=== PATIENT | male | born 1955 | race Caucasian/White ===

== ENCOUNTER 2021-07-01 13:05 | Emergency (ER) | payer OTHER, SELFPAY ==
[2021-07-01 13:14] VITALS: BP 143/68; PULSE 70; RESP 18; TEMP 37; O2SAT 98
--- NOTE | 2021-07-01 13:23 | ED.URI ---
HPI - URI/Sore Throat General Chief Complaint: Upper Respiratory Infection Stated Complaint: Cough,Shortness of Breath Time Seen by Provider: 07/01/21 13:23 Source: patient Mode of arrival: ambulatory Limitations: no limitations History of Present Illness HPI Narrative: 65-year-old male presents with complaint of cough, chest congestion, wheezing, difficulty breathing for 2 days. Symptoms started after he cut grass and mulch in his backyard. Patient took Zyrtec with no relief of symptoms. reports that they both had Covid in March and since then report more breathing issues. Denies fever chills. No body aches. All systems reviewed and negative except as noted above. Related Data Home Medications Medication Instructions Recorded Confirmed cyclobenzaprine 10 mg tablet 10 mg PO TID 04/29/19 07/01/21 aspirin 81 mg tablet,delayed 81 mg PO DAILY 05/12/19 07/01/21 release Allergies Allergy/AdvReac Type Severity Reaction Status Date / Time No Known Allergies Allergy Verified 07/01/21 13:08 Review of Systems Review of Systems: CONSTITUTIONAL: Denies fever, chills, or sweats. EYES: Denies visual changes, redness, or discharge. ENT: Reports rhinorrhea, congestion. Denies sore throat, or otalgia. CARDIOVASCULAR: Denies chest pain, palpitations, or edema. RESPIRATORY: Reports cough, dyspnea, wheezing. GASTROINTESTINAL: Denies abdominal pain, nausea, vomiting, or diarrhea. GENITOURINARY: Denies dysuria or hematuria. SKIN: Denies rash or itching. MUSCULOSKELETAL: Denies back pain, joint pain, or myalgia. NEUROLOGIC: Denies headache, numbness, or weakness. PSYCHIATRIC: Denies anxiety or depression. All other systems reviewed are negative, except as documented in HPI. [facility] Family History Family History Mother Family history of heart disease in male family member before age 55 Patient's mother is Family history of diabetes mellitus in first degree relative Sibling Family history of heart disease in male family member before age 55 Father Acute myocardial infarction Patient's father is Family history of heart disease in male family member before age 55 Other Cerebrovascular accident Diabetes mellitus Family history of coronary artery disease Social History Social History Smoking end date: 03/23/06 Alcohol intake: never Comments At time of signature, agree with nursing past medical, surgical, social and family history. There is no relevant family history pertinent to the presenting complaint. Exam Narrative: GENERAL: This is a well-nourished, well-developed patient, in no apparent distress. HEAD: normocephalic, atraumatic. EYES: PERRL. Sclera clear/white. Vision is grossly intact. EARS: External ears normal, auditory canals clear and without drainage, TMs normal without perforation. Hearing grossly intact. NOSE: External nose normal with clear nasal drainage. THROAT: Mucous membranes moist, posterior pharynx clear. NECK: Neck supple, non-tender without lymphadenopathy, masses or thyromegaly. CARDIOVASCULAR: Regular rate and rhythm without murmurs, gallops, or rubs. RESPIRATORY: Patient hunched over with some mild labored breathing. He has coarse lung sounds throughout all lung hurst with mild wheezing on expiration to upper lung hurst. SKIN: warm, Dry, intact with no suspicious lesions or rash, good texture and turgor. NEURO: awake, alert, and oriented to person, place and time. There were no obvious focal neurologic abnormalities. EXTREMITIES: Normal range of motion all extremities. Course Course Level of Care: Express Care Visit Reevaluation(s) Reevaluation #1: Patient reports feeling better after albuterol nebulizer. States he can take a deep breath and getting a full cough. Able to cough up more phlegm. Wheezing has resolved. Date: 07/01/21 Time: 14:16
[2021-07-01] MEDS: methylPREDNISolone SOD SUCC 125 MG VIAL IM (13:37)
[2021-07-01] MEDS: ALBUTEROL SULFATE NEB 2.5 MG/3 ML INH INHALATION (13:38)
== END 2021-07-01 14:10 | disposition home or self-care (01) ==
PROVIDERS: Emergency Provider Nurse Practitioner Family; PCP Internal Medicine
DX: J30.2 Other seasonal allergic rhinitis (principal); J06.9 Acute upper respiratory infection, unspecified; E78.00 Pure hypercholesterolemia, unspecified; I10 Essential (primary) hypertension; Z86.16 Personal history of COVID-19; M13.0 Polyarthritis, unspecified; E03.9 Hypothyroidism, unspecified
CPT/HCPCS: 96372; 99213; G0463; J2930

== ENCOUNTER 2023-04-26 13:01 | Emergency (ER) | payer MEDICARE, SELFPAY ==
[2023-04-26] VITALS (8 sets, daily range): BP systolic 106–140; BP diastolic 53–72; PULSE 65–79; RESP 15–24; TEMP 36.6; O2SAT 95–98
--- NOTE | ~2023-04-26 | XR_ITS ---
EXAMINATION: XR chest 1V portable INDICATION: Shortness of breath TECHNIQUE: Portable AP chest at 1332 hours COMPARISON: 06/18/2012 FINDINGS: The lungs are free of acute opacities. No pleural effusion or pneumothorax. The cardiomedia stinal silhouette is normal. IMPRESSION: 1. No acute cardiopulmonary abnormality. Reviewed, dictated and finalized at location A. AGE SUPERVISOR
--- NOTE | ~2023-04-26 | XR_ITS ---
EXAM: XR abdomen/kub 1V DATE: 04/26/2023 16:30 HISTORY: assess for IVC filter . COMPARISON: None available. FINDINGS: IVC filter projecting over the right lateral aspect of L3. Contrast excretion from the kid neys. Normal bowel gas pattern. No definite organomegaly. Hernia mesh anchors over the mid abdomen. P artially visualized left hip arthroplasty hardware. Degenerative disc disease in the lumbar spine. IMPRESSION: Positive identification of an IVC filter. Reviewed, dictated and finalized at location K. COUNSELOR
--- NOTE | ~2023-04-26 | CT_ITS ---
EXAMINATION: CTA chest PE protocol DATE: 04/26/2023 16:02 INDICATION: PE TECHNIQUE: Computed tomography angiography (CTA) of the chest was performed with 100 mL Omnipaque-350 intravenous contrast timed to evaluate the pulmonary arteries. Coronal maximum intensity projection 3D-reconstructions were created by the technologist. The dose-length product (DLP) was 1022.98 mGy-cm . Automated exposure control and iterative reconstruction technique were employed. COMPARISON: X-ray chest, same date. FINDINGS: Lung parenchyma and airways: Dependent atelectasis. Airways clear. Pleura: Unremarkable. Thoracic inlet, axillae and chest wall: Unremarkable. Thoracic aorta: Normal. Mediastinum: Normal. Heart and pericardium: Cardiomegaly. RV/LV ratio 1.1. Coronary artery calcifications: Mild. Upper abdomen: No significant finding. Bones: No acute osseous finding. Pulmonary arteries: Study quality: Adequate. Saddle embolus bridging across the bifurcation of the le ft and right main pulmonary arteries. Acute emboli in the right and left main pulmonary arteries and segmental branches of all lobes. IMPRESSION: Central and segmental acute emboli involving all lobes, large clot burden, elevated RV/LV ratio, mac cating right heart strain. Results reported telephonically to Dr. Lorenzo by Dr. Cook at 4:15 PM on 04/26/2023. Reviewed, dictated and finalized at location K. YER MACHINE IMPRESSION: Central and segmental acute emboli involving all lobes, large clot burden, elev ated RV/LV ratio, indicating right heart strain. Results reported telephonically to Dr. Lorenzo by Dr. Cook at 4:15 PM on 024.
--- NOTE | 2023-04-26 13:13 | ECG_ITS ---
Measurements Intervals [place] Rate: 72 P: 16 [place]: 182 QRS: -32 QRSD: 104 T: 25 QT: 374 QTc: 410 Interpretive Statements SINUS RHYTHM WITH OCCASIONAL VENTRICULAR PREMATURE COMPLEXES LEFT AXIS DEVIATION [QRS AXIS < -30] LOW QRS VOLTAGE IN PRECORDIAL LEADS [QRS DEFLECTION < 1.0 mV IN CHEST LEADS] ABNORMAL ECG NO PREVIOUS ECG AVAILABLE FOR COMPARISON Electronically Signed On 04-27-2023 7:28:45 CLINICAL SCIENTIST by Mathieu Rowley M.D.
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
[2023-04-26 13:48] LABS: Basophils Percent Auto 0.6 % (0.2-1.2); Eosinophils Absolute Auto 0.1 K/mm3 (0-0.3); Eosinophils Percent Auto 1.4 % (0-4.4); Hematocrit 41.8 % (42.0-52.0); Immature Granulocyte Absolute 0.02 K/mm3 (0.00-0.031); Immature Granulocyte Percent A 0.3 % (0-0.5); Lymphocytes Percent Auto 11.4 % (18.3-44.2); Mean Corpuscular HGB Conc 33.5 g/dl (32-36); Mean Corpuscular Hemoglobin 31.3 pg (26-34); Mean Corpuscular Volume 93.5 fl (80-100); Mean Platelet Volume 9.6 fl (7.4-10.4); Monocytes Absolute Auto 0.7 K/mm3 (0.1-0.6); Monocytes Percent Auto 10.5 % (2.6-8.5); Neutrophils Absolute Auto 5.3 K/mm3 (1.3-6.7); Neutrophils Percent Auto 75.8 % (45.5-73.1); Platelet Count Result 181 k/mm3 (150-375); Red Blood Count 4.47 M/mm3 (4.6-6.20); Red Cell Distribution Width 12.9 % (11.5-14.5)
[2023-04-26 13:57] LABS: INR 1.1; Prothrombin Time 14.5 Seconds (11.1-14.7)
[2023-04-26 13:58] LABS: Partial Thromboplastin Time 29.2 SECONDS (22.3-36.8)
[2023-04-26 14:06] LABS: Alanine Aminotransferase 50 U/L (6-50); Albumin Level 3.9 g/dL (3.5-5.1); Alkaline Phosphatase 86 U/L (38-126); Anion Gap 10 mmol/L (8-16); Aspartate Amino Transferase 38 U/L (17-59); Bilirubin,Total 0.5 mg/dL (0.2-1.3); Blood Urea Nitrogen 17 mg/dL (9-20); Carbon Dioxide 22 mmol/L (22-30); Chloride 105 mmol/L (98-107); Estimated CRCL calculation 90 ml/min; Estimated Glomerular Filt Rate > 60; Glucose 131 mg/dL (65-110); Potassium 3.8 mmol/L (3.4-5.0); Sodium 137 mmol/L (137-145)
[2023-04-26 14:16] LABS: NT Pro B Type Natriuretic Pept 58 pg/mL (19.9-100); Troponin I 0.027 ng/mL (0.000-0.034)
[2023-04-26 14:19] LABS: D Dimer > 20.00 ug/mL (<0.48)
[2023-04-26 14:35] LABS: Appearance Urine Clear (Clear); Bacteria Urine None Seen /hpf; Bilirubin Urine Negative (Negative); Blood Urine Trace (Negative); Color Urine Yellow (Yellow); Glucose Urine UA Negative (Negative); Ketones Urine Trace mg/dL (Negative); Leukocyte Esterase Ur Negative LEU/UL (Negative); Nitrate Urine Negative (Negative); Non Pathogenic Casts 0-2; Protein Urine Trace mg/dL (Negative); RBC Urine 0-2 /hpf (0-2); Specific Grav Ur 1.023 (1.001-1.035); Squamous Epithelial Cell Urine None seen /hpf (Few); WBC Urine 0-5 /hpf; pH Urine 5.5 (5.0-9.0)
[2023-04-26 14:39] LABS: Add Urine Microscopic? YES
[2023-04-26 15:24] LABS: Influenza A QL RT-PCR Negative (Negative); Influenza B QL RT-PCR Negative (Negative); RSV RNA, RT-PCR Negative (Negative); SARS-CoV-2 RNA PCR Negative (Negative)
--- NOTE | 2023-04-26 16:21 | ECG_ITS ---
Measurements Intervals [place] Rate: 68 P: 84 [place]: 193 QRS: -35 QRSD: 95 T: 34 QT: 388 QTc: 415 Interpretive Statements SINUS RHYTHM MARKED LEFT AXIS DEVIATION [QRS AXIS < -30] LOW QRS VOLTAGE IN PRECORDIAL LEADS [QRS DEFLECTION < 1.0 mV IN CHEST LEADS] ABNORMAL ECG COMPARED TO ECG 04/26/2023 13:17:03 PVCS ARE NOT PRESENT Electronically Signed On 04-27-2023 7:36:14 FINANCIAL CONSULTANT by Mathieu Rowley M.D.
[2023-04-26] MEDS: HEPARIN SODIUM 5,000 UNITS/ML VIAL 8500 UNITS IV PUSH (16:42)
[2023-04-26] MEDS: HEPARIN SOD/D5W 100 UNITS/ML 25,000 UNITS/250 ML BAG 15 UNITS IV CONT (16:45)
[2023-04-26 17:14] LABS: Troponin I 0.048 ng/mL (0.000-0.034)
--- NOTE | 2023-04-26 18:04 | PC.NURSE ---
Spoke with Aga at [facility] transfer center and gave update about pt. Aga stated they would call back when they had a bed available
[2023-04-26 20:57] LABS: Troponin I 0.043 ng/mL (0.000-0.034)
[2023-04-26 22:45] LABS: Basophils Percent Auto 0.5 % (0.2-1.2); Eosinophils Absolute Auto 0.1 K/mm3 (0-0.3); Eosinophils Percent Auto 1.8 % (0-4.4); Hematocrit 39.9 % (42.0-52.0); Hemoglobin 13.2 g/dL (14.0-18.0); Immature Granulocyte Absolute 0.01 K/mm3 (0.00-0.031); Immature Granulocyte Percent A 0.2 % (0-0.5); Lymphocytes Absolute Auto 1.36 K/mm3 (0.9-3.2); Lymphocytes Percent Auto 22.3 % (18.3-44.2); Mean Corpuscular HGB Conc 33.1 g/dl (32-36); Mean Corpuscular Hemoglobin 31.1 pg (26-34); Mean Corpuscular Volume 94.1 fl (80-100); Mean Platelet Volume 9.5 fl (7.4-10.4); Monocytes Absolute Auto 0.9 K/mm3 (0.1-0.6); Monocytes Percent Auto 15.2 % (2.6-8.5); Neutrophils Absolute Auto 3.7 K/mm3 (1.3-6.7); Platelet Count Result 168 k/mm3 (150-375); Red Blood Count 4.24 M/mm3 (4.6-6.20); White Blood Count 6.1 K/mm3 (4.5-10.0)
[2023-04-26 23:00] LABS: INR 1.1; Prothrombin Time 14.7 Seconds (11.1-14.7)
[2023-04-26 23:03] LABS: Partial Thromboplastin Time 102.8 SECONDS (22.3-36.8)
== END 2023-04-26 23:35 | disposition short-term general hospital (02) ==
PROVIDERS: Emergency Provider Student in an Organized Health Care Education/Training Program; PCP Nurse Practitioner
DX: I26.92 Saddle embolus of pulmonary artery without acute cor pulmonale (principal); I10 Essential (primary) hypertension; E03.9 Hypothyroidism, unspecified; E78.5 Hyperlipidemia, unspecified; Z20.822 Contact with and (suspected) exposure to COVID-19
CPT/HCPCS: 36415; 71045; 71275; 74018; 80053; 81001; 83880; 84484; 85025; 85380; 85610; 85730; 87637; 93005; 96365; 96366; 99285; J1644; Q9967

== ENCOUNTER 2024-11-25 13:02 | Inpatient (IN) | payer MEDICARE, SELFPAY ==
[2024-11-25] VITALS (13 sets, daily range): BP systolic 102–131; BP diastolic 48–68; PULSE 54–67; RESP 11–20; TEMP 36.3–36.4; O2SAT 93–99; BMI 41.2
--- NOTE | ~2024-11-25 | US_ITS ---
EXAMINATION: US venous doppler UE RT DATE: 12/01/2024 14:12 INDICATION: Right upper extremity edema TECHNIQUE: Barros scale images with and without compression and Doppler images of the right upper extremity veins were obtained. COMPARISON: None. FINDINGS: The right internal jugular vein, subclavian vein, axillary vein, brachial veins, basilic vein, cephalic vein, radial vein, and ulnar vein are patent. IMPRESSION: 1. Patent right upper extremity veins. No evidence of deep venous thrombosis. Reviewed, dictated and finalized at location O.
--- NOTE | ~2024-11-25 | CT_ITS ---
EXAMINATION: CTA chest abdomen pelvis DATE: 11/25/2024 13:50 CDT INDICATION: Abdominal pain and hypotension TECHNIQUE: Computed tomographic angiography (CTA) of the chest, abdomen, and pelvis was performed without and with 100 mL Omnipaque-350 intravenous contrast. The dose-length product was 2267.28 mGy-cm. Maximum intensity projection 3D- reconstructions of the aorta and other arteries were constructed by the technologist on a separate workstation. COMPARISON: CT dated 04/26/2023. FINDINGS: CHEST CTA: There is dependent atelectasis. No focal consolidation to suggest pneumonia. Heart size normal. No evidence for aortic aneurysm or dissection. There is an IVC filter present. No thoracic lymphadenopathy. No central pulmonary embolism. ABDOMEN AND PELVIS CTA: Small low-density lesion right hepatic lobe near the dome, likely benign. Fatty infiltration of the liver. There are calcified granulomas of the spleen. The pancreas, adrenal glands and left kidney are unremarkable. There are right renal cysts, largest measuring 6 cm. Gallbladder is contracted. There is stenosis at the origin of the SMA, celiac axis. Renal arteries are patent. No evidence for abdominal aortic aneurysm or dissection. No free air or free fluid. There are changes of previous abdominal wall hernia repair. There is a left inguinal hernia containing fat. No free air or free fluid. Nonobstructive bowel gas pattern. No lymphadenopathy. There is a left total hip arthroplasty. There is moderate multilevel thoracic and lumbar spondylosis. IMPRESSION: 1. No acute abnormality of the chest, abdomen and pelvis. Reviewed, dictated and finalized at location O.
--- NOTE | ~2024-11-25 | MR_ITS ---
EXAMINATION: MR MRCP wo/w con/w 3D wo ind DATE: 11/30/2024 16:03 INDICATION: Pancreatitis. Hyperbilirubinemia. TECHNIQUE: Magnetic resonance imaging (MRI) of the abdomen was performed without and with 20 mL Multihance intravenous contrast. Sequences included coronal T2- weighted SS-FSE, coronal T2-weighted FS SS-FSE, coronal T2-weighted FS FIESTA, axial T2-weighted FS FIESTA, axial T2-weighted FIESTA, sagittal T2-weighted SS- FSE, axial T1-weighted dual-echo FSPGR, axial T2-weighted SS-FSE, axial T1- weighted LAVA, axial T2-weighted STIR FSE. Thick-slab T2-weighted FRFSE-XL images were obtained for magnetic resonance cholangiopancreatography (MRCP). Rotating maximum intensity projection 3-D reconstructions of the volumetric data were created by the technologist. Postcontrast sequences included a time course of axial T1-weighted LAVA. COMPARISON: CT dated 11/25/2024 FINDINGS: ABDOMEN MRI: Heart size is normal. No pericardial or pleural effusion. Trace bilateral posterior layering pleural effusions. There are multiple small T2 hyperintense nonenhancing hepatic cysts the largest measuring 1.1 cm. There is an abnormal morphology of the gallbladder which has a bilobed appearance with region of focally thickened gallbladder wall narrowing the lumen of the mid gallbladder with fluid filling the fundus and proximal aspect of the gallbladder. Spleen and bilateral adrenal glands are normal. There are bilateral renal cysts the largest on the left measuring 6.5 cm. There is peripancreatic edema and non masslike enhancement most prominent around the uncinate process suspicious for acute interstitial pancreatitis. There are small nonloculated appearing acute peripancreatic fluid collections in the anterior to the head of the pancreas. There is additional small amount of perihepatic and perisplenic ascites which tracks caudally along the left and right paracolic gutters. Visualized bowels are unremarkable with no obstruction. No pathologically enlarged abdominal or upper pelvic lymphadenopathy. Moderate to severe lumbar and lower thoracic spondylosis. ABDOMEN MRCP: No intrahepatic biliary ductal dilation. Common bile duct is dilated to 7 mm and tapers distally with no evident obstructing stone or mass. Main pancreatic duct is normal in caliber. IMPRESSION: 1. Acute interstitial pancreatitis with multiple small nonloculated acute peripancreatic fluid collections extending to the fat anterior to the head of the pancreas. 2. Abnormal groundglass configuration of the gallbladder with wall thickening at the central aspect of the gallbladder which appears narrowed suggests either scarring related chronic cholecystitis or potentially gallbladder carcinoma. Recommend surgical consultation. 2. Mild dilation the common bile duct to 7 mm but which tapers distally with no evident obstructing stone or mass. Reviewed, dictated and finalized at location A. IMPRESSION: 1. Acute interstitial pancreatitis with multiple small nonloculated acute perip ancreatic fluid collections extending to the fat anterior to the head of the pa ncreas. 2. Abnormal groundglass configuration of the gallbladder with wall thickening a t the central aspect of the gallbladder which appears narrowed suggests either scarring related chronic cholecystitis or potentially gallbladder carcinoma. Re commend surgical consultation. 2. Mild dilation the common bile duct to 7 mm but which tapers distally with no evident obstructing stone or mass.
--- NOTE | ~2024-11-25 | US_ITS ---
EXAMINATION: US abdomen limited DATE: 11/27/2024 08:46 INDICATION: Elevated liver enzymes TECHNIQUE: Multiple grayscale and Doppler ultrasound images of the abdomen were obtained. COMPARISON: None FINDINGS: Study is limited by patient body habitus. The pancreas is not clearly visualized. Liver has normal echogenicity and contour, with a smooth surface. No liver lesion identified. No intrahepatic biliary duct dilation suspected. Portal venous flow was seen in the hepatopetal, normal direction and has normal Doppler waveform. The gallbladder is normal in appearance. There is no cholelithiasis. The common bile duct measures 4 mm, which is normal. Sonographic Cano sign was reported as negative by the metal spray operator.Visualized portion of the proximal inferior vena cava is normal. IMPRESSION: 1. Unremarkable right upper quadrant ultrasound although evaluation is limited by patient body habitus Reviewed, dictated and finalized at location A.
--- NOTE | ~2024-11-25 | XR_ITS ---
XR chest 1V portable 11/25/2024 13:21 Indication: Abdomen pain. Procedure: AP portable chest Comparison: 04/26/2023 Findings: Borderline heart size. Mild chronic pulmonary vascular congestion. No significant effusion. No pneumothorax. No acute osseous abnormality. Impression: 1: Mild chronic pulmonary vascular congestion. Reviewed, dictated and finalized at location O. Impression: 1: Mild chronic pulmonary vascular congestion.
--- NOTE | 2024-11-25 13:05 | ECG_ITS ---
Test Date: 2024-11-25 13:30:33 Measurements Intervals [place] Rate: 67 P: -23 OR: 169 QRS: -31 QRSD: 108 T: 17 QT: 432 QTc: 457 Interpretive Statements SINUS RHYTHM MARKED LEFT AXIS DEVIATION [QRS AXIS < -30] LOW QRS VOLTAGE IN PRECORDIAL LEADS [QRS DEFLECTION < 1.0 mV IN CHEST LEADS] POSSIBLE RIGHT VENTRICULAR CONDUCTION DELAY [RSR (QR) IN V1/V2] No previous ECG available for comparison Electronically Signed On 11-25-2024 13:32:30 CDT by Fredo Hussein M.D.
[2024-11-25 13:23] LABS: Estimated Glomerular Filt Rate 38
[2024-11-25] MEDS: fentaNYL CITRATE INJ (*CRX) 100 MCG/2 ML VIAL 50 MCG IV PUSH ×2 (13:25→14:27)
[2024-11-25] MEDS: SODIUM CHLORIDE 0.9% IV 1,000 ML 999 ML IV CONT (13:41)
[2024-11-25 14:06] LABS: Hematocrit 40.5 % (42.0-52.0); Hemoglobin 13.6 g/dL (14.0-18.0); Immature Granulocyte Percent A 0.2 % (0-0.5); Lymphocytes Absolute Auto 1.30 K/mm3 (0.9-3.2); Mean Corpuscular HGB Conc 33.6 g/dl (32-36); Mean Corpuscular Hemoglobin 31.3 pg (26-34); Mean Corpuscular Volume 93.1 fl (80-100); Nucleated Red Blood Cells Absolute Auto 0.000 K/mm3 (0.0-0.012); Nucleated Red Blood Cells Perc 0.0 % (0.0-0.2); Platelet Count Result 235 k/mm3 (150-375); Red Blood Count 4.35 M/mm3 (4.6-6.20); White Blood Count 8.0 K/mm3 (4.5-10.0)
[2024-11-25 14:20] LABS: INR 1.6; Prothrombin Time 19.0 Seconds (11.1-14.7)
[2024-11-25 14:21] LABS: Partial Thromboplastin Time 31.9 Seconds (22.3-36.8)
[2024-11-25 14:30] LABS: Alanine Aminotransferase 54 U/L (6-50); Albumin Level 4.1 g/dL (3.5-5.1); Alkaline Phosphatase 78 U/L (38-126); Anion Gap 11 mmol/L (4-12); Aspartate Amino Transferase 65 U/L (17-59); Bilirubin,Total 1.6 mg/dL (0.2-1.3); Blood Urea Nitrogen 29 mg/dL (9-20); Calcium 9.0 mg/dL (8.4-10.2); Carbon Dioxide 19 mmol/L (22-30); Chloride 104 mmol/L (98-107); Estimated CRCL calculation 60 ml/min; Estimated Glomerular Filt Rate 43; Glucose 140 mg/dL (65-110); Magnesium 2.0 mg/dL (1.6-2.3); Potassium 3.9 mmol/L (3.4-5.0); Sodium 134 mmol/L (137-145); Total Protein 7.6 g/dL (6.3-8.2)
[2024-11-25 14:40] LABS: NT Pro B Type Natriuretic Pept 21 pg/mL (19.9-100); Troponin I < 0.012 ng/mL (0.000-0.034)
[2024-11-25 14:46] LABS: Procalcitonin 0.1 ng/mL
[2024-11-25 14:46] LABS: Influenza A QL RT-PCR Negative (Negative); Influenza B QL RT-PCR Negative (Negative); RSV RNA, RT-PCR Negative (Negative); SARS-CoV-2 RNA PCR Negative (Negative)
[2024-11-25 14:57] LABS: Lipase 17071 U/L (23-300)
--- NOTE | 2024-11-25 15:15 | ED.GENADULT ---
HPI - General Adult General Chief complaint: Abdominal Pain Stated complaint: abd pain Time Seen by Provider: 11/25/24 13:04 History of Present Illness HPI narrative: Patient is a in the 69-year-old gentleman presents emergency department chief complaint of abdominal pain. 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 the patient has a Genesis filter patient reports he has been compliant with his Eliquis patient was given IV fluids by EMS prior to arrival Related Data Home Medications ?Medication ?Instructions ?Recorded ?Confirmed ?Last Taken ?Type apixaban 5 mg tablet (Eliquis) 5 mg PO BID 09/08/23 10/20/24 Unknown History tiotropium 2.5 mcg-olodaterol 2.5 2 puff inhalation DAILY 10/20/24 10/20/24 Unknown History mcg/actuation mist for inhalation (Stiolto Respimat) Allergies Allergy/AdvReac Type Severity Reaction Status Date / Time No Known Allergies Allergy Verified 11/25/24 13:37 Review of Systems Review of Systems: A 10 system review of systems was completed on the patient and is negative except for what is stated in the HPI. Nursing and ancillary documentation was reviewed. [facility] Surgical History Surgical History History of hip surgery Family History Family History Mother Family history of heart disease in male family member before age 55 Patient's mother is Family history of diabetes mellitus in first degree relative Sibling Family history of heart disease in male family member before age 55 Heart disease Father Acute myocardial infarction Patient's father is Family history of heart disease in male family member before age 55 Other Cerebrovascular accident Diabetes mellitus Family history of coronary artery disease Social History Social History Smoking status: Former smoker Second hand tobacco smoke exposure: No Smoking end date: 03/23/06 Alcohol intake: current Drinks per week: 4 Alcohol use details: occasionally, beer Substance use: never Substance use type: does not use Do You Feel Safe in your Home?: Yes Lack of Transportation: No Lack of Food: Never True Current Housing: I Have Housing Concerned About Future Housing: No Difficulty Paying Gas/Electric Bills: No Difficulty Paying for Meds: No Currently Unemployed: No Education: Bachelor's Degree Difficulty w/ Childcare or Family Care: No Living arrangements: with family Occupation/Education: retired Additional occupation/education comments: [employer] Gender identity (if verbalized by the patient): Female Exam Narrative: GENERAL: Diaphoretic-appearing, well-nourished, and in moderate acute pain distress. HEAD: Normocephalic, atraumatic. EYES: PERRLA and EOMI. ENT: Nares clear, no rhinorrhea or epistaxis. Mucous membranes moist. NECK: Supple. CHEST: Clear to auscultation. No respiratory distress. HEART: Regular rate and rhythm. No murmur heard. Normal peripheral pulses. ABDOMEN: Soft, diffuse mild tenderness, nondistended, normal active bowel sounds. EXTREMITIES: Normal range of motion. No edema. SKIN: Warm, dry, no rash. NEURO: No focal deficits. Alert and oriented x3. PSYCH: Normal mood and affect. Course Vital Signs Vital signs: Vital Signs Temperature 36.3 C L 11/25/24 13:00 Pulse Rate 65 11/25/24 13:00 Respiratory Rate 12 11/25/24 13:00 Blood Pressure 112/52 L 11/25/24 13:00 Pulse Oximetry 96 11/25/24 13:00 Oxygen Delivery Room Air 11/25/24 13:00 Temperature 36.3 C L 11/25/24 13:00 Pulse Rate 60 11/25/24 15:10 Respiratory Rate 20 11/25/24 15:10 Blood Pressure 118/63 11/25/24 15:10 Pulse Oximetry 99 11/25/24 15:10 Oxygen Delivery Room Air 11/25/24 13:00 Medical Decision Making MDM Narrative Medical decision making narrative: Differential diagnosis includes pulmonary embolism, dissection, aneurysm, pancreatitis, intra-abdominal infection, bowel perforation Laboratory studies were obtained on the patient showed a white count of 8.0 electrolytes showed a BUN of 29 creatinine 1.61 Bilirubin was 1.6 AST and ALT were slightly elevated at 65 and 54 troponin was negative lipase was 17,071 CTA chest abdomen pelvis showed no acute abnormality Patient's pain was controlled in the emergency department Vital Signs Vital Signs: Vital Signs Temperature 36.3 C L 11/25/24 13:00 Pulse Rate 65 11/25/24 13:00 Respiratory Rate 12 11/25/24 13:00 Blood Pressure 112/52 L 11/25/24 13:00 Pulse Oximetry 96 11/25/24 13:00 Oxygen Delivery Room Air 11/25/24 13:00 Temperature 36.3 C L 11/25/24 13:00 Pulse Rate 60 11/25/24 15:10 Respiratory Rate 20 11/25/24 15:10 Blood Pressure 118/63 11/25/24 15:10 Pulse Oximetry 99 11/25/24 15:10 Oxygen Delivery Room Air 11/25/24 13:00 Lab Data 11/25/24 13:57 11/25/24 13:57 Labs: Lab Results 11/25/24 11/25/24 11/25/24 Range/Units 13:21 13:57 13:58 WBC 8.0 (4.5-10.0) K/mm3 RBC 4.35 L (4.6-6.20) M/mm3 Hgb 13.6 L (14.0-18.0) g/dL Hct 40.5 L (42.0-52.0) % MCV 93.1 (80-100) fl MCH 31.3 (26-34) pg MCHC 33.6 (32-36) g/dl RDW 13.2 (11.5-14.5) % Plt Count 235 (150-375) k/mm3 MPV 10.0 (7.4-10.4) fl Immature Gran % (Auto) 0.2 (0-0.5) % Neut % (Auto) 74.4 H (45.5-73.1) % Lymph % (Auto) 16.2 L (18.3-44.2) % [place] % (Auto) 8.0 (2.6-8.5) % Eos % (Auto) 1.0 (0-4.4) % Baso % (Auto) 0.2 (0.2-1.2) % Lymph # (Auto) 1.30 (0.9-3.2) K/mm3 [place] # (Auto) 0.6 (0.1-0.6) K/mm3 Eos # (Auto) 0.1 (0-0.3) K/mm3 Baso # (Auto) 0.0 (0.0-0.1) K/mm3 Abs Immat Gran (auto) 0.02 (0.00-0.031) K/mm3 Absolute Neuts (auto) 6.0 (1.3-6.7) K/mm3 Absolute Nucleated RBC 0.000 (0.0-0.012) K/mm3 Nucleated RBC % 0.0 (0.0-0.2) % PT 19.0 H (11.1-14.7) Seconds INR 1.6 APTT 31.9 (22.3-36.8) Seconds Sodium 134 L (137-145) mmol/L Potassium 3.9 (3.4-5.0) mmol/L Chloride 104 (98-107) mmol/L Carbon Dioxide 19 L (22-30) mmol/L Anion Gap 11 (4-12) mmol/L BUN 29 H D (9-20) mg/dL Creatinine 1.80 H 1.61 H (0.8-1.5) mg/dL Estim Creat Clear Calc Not Reportable 60 Estimated GFR 38 L 43 L (59 - ) Glucose 140 H (65-110) mg/dL Lactic Acid 1.7 (0.7-2.0) mmol/L Calcium 9.0 (8.4-10.2) mg/dL Magnesium 2.0 (1.6-2.3) mg/dL Total Bilirubin 1.6 H (0.2-1.3) mg/dL AST 65 H (17-59) U/L ALT 54 H (6-50) U/L Alkaline Phosphatase 78 (38-126) U/L Troponin I < 0.012 (0.000-0.034) ng/mL NT-Pro-B Natriuret Pep 21 (19.9-100) pg/mL Total Protein 7.6 (6.3-8.2) g/dL Albumin 4.1 (3.5-5.1) g/dL Lipase 61662 H (23-300) U/L Procalcitonin 0.1 ng/mL Influenza A (RT-PCR) Negative (Negative) Influenza B (RT-PCR) Negative (Negative) RSV (RT-PCR) Negative (Negative) SARS-CoV-2 RNA (RT-PCR) Negative (Negative) Blood Type O Positive Antibody Screen Negative Discharge Plan Discharge Clinical Impression: Acute pancreatitis, Abdominal pain Patient Disposition: Still a Patient Condition: Stable Instructions: Antibiotic Form Patient Language: Congolese Prescriptions: No Action Eliquis 5 mg tablet 5 mg PO BID levothyroxine 125 mcg tablet 125 mcg PO DAILY Qty: 90 1RF pravastatin 40 mg tablet See Rx Instructions .ROUTE .COMPLEX Qty: 90 1RF Dose Instruction: TAKE ONE-HALF TABLET BY MOUTH DAILY Rx Instructions: TAKE ONE-HALF TABLET BY MOUTH DAILY Stiolto Respimat 2.5-2.5 mcg/actuation mist 2 puff inhalation DAILY hydrochlorothiazide 12.5 mg tablet 12.5 mg PO DAILY Qty: 90 1RF olmesartan 20 mg tablet 20 mg PO DAILY Qty: 90 3RF Follow-up/Referrals: Barry Stevens APRN [Primary Care Provider, Internal Medicine] Time of Disposition: 15:46
[2024-11-25] MEDS: HYDROmorphone HCL INJ (*CRX) 1 MG/ML SYR 0.5 MG IV PUSH (15:56)
[2024-11-25] MEDS: SODIUM CHLORIDE 0.9% IV 1,000 ML 125 ML IV CONT (16:00)
[2024-11-25 16:17] LABS: Glucose Urine UA Negative (Negative); Leukocyte Esterase Ur Negative LEU/UL (Negative); Nitrate Urine Negative (Negative); Specific Grav Ur 1.040 (1.001-1.035)
[2024-11-25 16:20] LABS: Add Urine Microscopic? NO; Appearance Urine Clear (Clear)
--- NOTE | 2024-11-25 16:27 | P.HP_ITS ---
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 The patient presents here from home via EMS on 11/25 for further evaluation of abdominal pain. He reports onset of severe abdominal pain starting around 11 a.m. He described the abdominal pain as ache -> sharp, epigastric, nonradiating, constant but severity varies, no aggravating factors, and pressure/sitting up can somewhat alleviate it. Pain is accompanied by nausea and vomiting. He denies fever, chills, or body aches. The abdominal pain had prompted him to call EMS. Upon their arrival the patient's systolic blood pressure was in the 80s. However after they transferred him to the ambulance his blood pressure had dropped to 52/25. Given his presenting symptoms and severe hypotension, EMS became concerned for a AAA rupture which prompted them to give him 1G of TXA and 1 mg of Epinephrine. He received 2L of fluids and arrived to the emergency department with a blood pressure of 112/52. He has had no additional hypotensive episode since arrival. He has a hx of pancreatitis, unknown etiology. Denies any recent alcohol use in the last 4 months. Initial VS at presentation: 97.4? F, HR 65, R 12, 112/52, and 96% on RA. ED workup showed: No leukocytosis, hemoglobin 13.6, INR 1.6, creatinine 1.8 and GFR 38 (1.1 and GFR 57 on 04/26/2023), glucose 140, total bilirubin 1.6, AST 65, ALT 54, lipase of 17,071, procalcitonin 0.1. UA showed a high specific gravity and trace ketones otherwise unremarkable. Viral PCR negative. CXR showed mild chronic pulmonary vascular congestion. CTA of the chest/abdomen/pelvis showed no acute abnormality. Review of Systems Review of Systems: All systems reviewed & are unremarkable except as noted in HPI and below PMFSH Past Medical History Medical History (Updated 11/25/24 @ 21:56 by Valerie Cisneros, TYPESETTER APPRENTICE) Pancreatitis Adult hypothyroidism Presence of IVC filter Saddle pulmonary embolus Polyarthritis of multiple sites Obesity Essential (primary) hypertension Mixed hyperlipidemia Surgical History Surgical History History of hip surgery Family History Family History Mother Family history of heart disease in male family member before age 55 Patient's mother is Family history of diabetes mellitus in first degree relative Sibling Family history of heart disease in male family member before age 55 Heart disease Father Acute myocardial infarction Patient's father is Family history of heart disease in male family member before age 55 Other Cerebrovascular accident Diabetes mellitus Family history of coronary artery disease Social History Social History Smoking status: Former smoker Second hand tobacco smoke exposure: No Smoking end date: 11/25/09 Alcohol intake: current Drinks per week: 4 Alcohol use details: occasionally, beer Substance use: never Substance use type: does not use Do You Feel Safe in your Home?: Yes Lack of Transportation: No Lack of Food: Never True Current Housing: I Have Housing Concerned About Future Housing: No Difficulty Paying Gas/Electric Bills: No Difficulty Paying for Meds: No Currently Unemployed: No Education: Bachelor's Degree Difficulty w/ Childcare or Family Care: No Living arrangements: with family Occupation/Education: retired Additional occupation/education comments: [employer] Gender identity (if verbalized by the patient): Female Spiritual care concerns: No Meds Home Medications and Allergies Home Medications ?Medication ?Instructions ?Recorded ?Confirmed ?Type apixaban 5 mg tablet (Eliquis) 5 mg PO BID 09/08/23 History levothyroxine 125 mcg tablet 125 mcg PO DAILY #90 tabs 09/08/23 11/25/24 Rx pravastatin 40 mg tablet See Rx Instructions .Route 0 09/08/23 11/25/24 Rx .COMPLEX #90 tabs hydrochlorothiazide 12.5 mg tablet 12.5 mg PO DAILY #9 0 tabs 05/19/24 11/25/24 Rx olmesartan 20 mg tablet 20 mg PO DAILY #90 tabs 07/0 10/1411/25/24 Rx tiotropium 2.5 mcg-olodaterol 2.5 2 puff inhalation DA SOLANGE 10/20/24 11/25/24 History mcg/actuation mist for inhalation (Stiolto Respimat) Allergies Allergy/AdvReac Type Severity Reaction Status Date / Time No Known Allergies Allergy Verified 11/25/24 13:37 Vital Signs Vital Signs - 24 hr 11/25/24 13:00 11/25/24 14:01 11/25/24 14:30 Temperature 97.4 F L Pulse Rate 65 58 L 54 L Respiratory Rate 12 11 L 11 L Blood Pressure 112/52 L 102/59 L 108/55 L Pulse Oximetry 96 99 96 Oxygen Delivery Room Air 11/25/24 15:10 11/25/24 16:07 Temperature 97.5 F L Pulse Rate 60 64 Respiratory Rate 20 16 Blood Pressure 118/63 131/68 Pulse Oximetry 99 99 Oxygen Delivery Exam Const: General: no acute distress Other: , male, uncomfortable. + active vomiting. HENMT: Face/Nose/Sinus: Normal nares present Mouth: Yes moist mucous membranes Eyes: General: appearance normal, both eyes and all related structures Sclera: sclerae normal Pupils: Equal, round and reactive pupils present EOM: EOMs intact bilaterally Resp: Effort & Inspection: normal respiratory effort Auscultation: clear to auscultation bilaterally Cardio: Rate: regular rate Rhythm: regular rhythm Other: S1-S2 present without murmur, rub, ectopy GI: Other: Abdomen rounded but soft. Tender in the epigastric region. Normoactive bowel sounds in all quadrants. Skin: General skin exam: normal color and no rashes or lesions noted Wounds: no wounds Neuro: Speech: normal speech Motor exam (neuro): 5/5 motor strength present throughout Sensory Exam: normal sensation Other: A&O x4 Extrem: General: normal to inspection Psych: Mental Status: mental status grossly normal Affect: normal affect Other: Good insight and judgment H&P: Results Labs Labs: Short CBC 11/25/24 Range/Units 13:57 WBC 8.0 (4.5-10.0) K/mm3 Hgb 13.6 L (14.0-18.0) g/dL Hct 40.5 L (42.0-52.0) % Plt Count 235 (150-375) k/mm3 [facility] 11/25/24 11/25/24 13:21 13:57 Sodium 134 L Potassium 3.9 Chloride 104 Carbon Dioxide 19 L BUN 29 H D Creatinine 1.80 H 1.61 H Glucose 140 H Calcium 9.0 Cardiac Enzymes 11/25/24 Range/Units 13:57 Troponin I < 0.012 (0.000-0.034) ng/mL Liver Function 11/25/24 Range/Units 13:57 Total Bilirubin 1.6 H (0.2-1.3) mg/dL AST 65 H (17-59) U/L ALT 54 H (6-50) U/L Alkaline Phosphatase 78 (38-126) U/L Albumin 4.1 (3.5-5.1) g/dL Urine 11/25/24 Range/Units 16:08 Urine Color Yellow (Yellow) Urine Appearance Clear (Clear) Urine pH 5.5 (5.0-9.0) Ur Specific [place] 1.040 H (1.001-1.035) Urine Protein Negative (Negative) mg/dL Urine Glucose (UA) Negative (Negative) mg/dL Assessment and Plan Assessment and plan (1) Acute pancreatitis: Qualifiers: Acute pancreatitis complication: no infection or necrosis Pancreatitis type: unspecified pancreatitis type Qualified Code(s): K85.90 - Acute pancreatitis without necrosis or infection, unspecified Code(s): K85.90 - Acute pancreatitis without necrosis or infection, unspecified Status: Acute Assessment and Plan: - acute, has history of pancreatitis - IVF: 2L bolus by EMS, 1L bolus in ED, now on 125 mL/hour - trend lipase, currently: 12234 - mild transaminitis noted. Total bilirubin 1.6, AST 65, ALT 54. trend LFTs. - CTA chest/abd/pelvis: - hold pravastatin - analgesics p.r.n.: Tylenol, [place], Dilaudid. Initially started on Dilaudid 0.5 mg q.4, increased 0.75 mg q.4 as the patient reported severe pain despite administration. Pain still not controlled this evening, increased to 1 mg. - NPO, advance to clear liquid diet tomorrow, and then advance patient's diet as tolerated. (2) Adult hypothyroidism: Code(s): E03.9 - Hypothyroidism, unspecified Status: Chronic Assessment and Plan: - previous lab work reviewed, TSH 2.7 to on 10/14/2024 - continue Synthroid (3) Essential (primary) hypertension: Code(s): I10 - Essential (primary) hypertension Status: Chronic Assessment and Plan: - chronic, currently 119/57 - hold home medications (olmesartan 20 mg daily, HCTZ 12.5 mg daily) given significant hypotension in the field. Resume when appropriate. Placed in IMU for close hemodynamic monitoring. Plan Diet: NPO GI Prophylaxis: PPI IV DVT Prophylaxis: Eliquis IV fluids: 3L bolus -> 125 mL/hour Lines/Tubes: Peripheral IV Code Status: Full code Quality VTE Prophylaxis VTE prophylaxis: pharmacologic ordered Hospitalist [facility] Advance Care Plan I have confirmed that the patient's Advanced Care Plan is present, code status is documented, or surrogate decision maker is listed in patient medical record.: Yes Medication Reconciliation I have utilized all available resources to obtain, update and review the patients current medications (includes all prescriptions, OTC, herbals, canna bis, and nutritional supplements).: Yes
--- NOTE | 2024-11-25 16:47 | ECG_ITS ---
Test Date: 2024-11-25 16:59:55 Measurements Intervals [place] Rate: 48 P: -25 [place]: 159 QRS: -28 QRSD: 105 T: 6 QT: 480 QTc: 431 Interpretive Statements SINUS BRADYCARDIA LOW QRS VOLTAGE IN PRECORDIAL LEADS [QRS DEFLECTION < 1.0 mV IN CHEST LEADS] POSSIBLE RIGHT VENTRICULAR CONDUCTION DELAY Compared to ECG 11/25/2024 13:30:33 NO SIGNIFICANT CHANGES Electronically Signed On 11-26-2024 10:44:35 CDT by Fredo Hussein M.D.
[2024-11-25] MEDS: ONDANSETRON INJ 4 MG/2 ML VIAL IV PUSH ×2 (16:50→22:15)
[2024-11-25] MEDS: HYDROmorphone HCL INJ (*CRX) 1 MG/ML SYR 0.75 MG IV PUSH (17:39)
[2024-11-25 17:48] LABS: Troponin I < 0.012 ng/mL (0.000-0.034)
--- NOTE | 2024-11-25 18:07 | ADMGEN ---
This patient, Dontae Tapia, was admitted to IMU Room 201-01. Patient/family oriented to hospital policies and general routines including ID bracelet, bed and alarms, visiting hours, pain management, procedures, bathroom and other care routines, personal items, smoking policy, room service/diet, and visiting hours. Information on how to activate the Rapid Response Team has been discussed. Patient/Family are encouraged to report perceived risks to care and to ask questions if they do not understand what they are told or what they should do.
[2024-11-25] MEDS: HYDROcodone/acetaminophen (*CRX) 5-325 MG TABLET 1 TAB PO (20:00)
[2024-11-25 20:21] LABS: Troponin I < 0.012 ng/mL (0.000-0.034)
[2024-11-25] MEDS: METOCLOPRAMIDE HCL 10 MG TABLET PO (20:45)
[2024-11-25] MEDS: FAMOTIDINE 20 MG/2 ML VIAL IV PUSH (21:49)
[2024-11-25] MEDS: APIXABAN 5 MG TABLET PO (22:14)
[2024-11-25] MEDS: HYDROmorphone HCL INJ (*CRX) 1 MG/ML SYR IV PUSH (22:14)
[2024-11-26] VITALS (19 sets, daily range): BP systolic 106–123; BP diastolic 42–59; PULSE 55–104; RESP 14–18; TEMP 36.5–37.4; O2SAT 96–100
[2024-11-26] MEDS: HYDROmorphone HCL INJ (*CRX) 1 MG/ML SYR IV PUSH ×3 (02:46→16:55)
[2024-11-26] MEDS: SODIUM CHLORIDE 0.9% IV 1,000 ML 125 ML IV CONT ×3 (03:36→16:53)
[2024-11-26 04:05] LABS: Hematocrit 43.2 % (42.0-52.0); Hemoglobin 14.3 g/dL (14.0-18.0); Immature Granulocyte Percent A 0.2 % (0-0.5); Lymphocytes Absolute Auto 0.64 K/mm3 (0.9-3.2); Mean Corpuscular HGB Conc 33.1 g/dl (32-36); Mean Corpuscular Hemoglobin 31.2 pg (26-34); Mean Corpuscular Volume 94.3 fl (80-100); Nucleated Red Blood Cells Absolute Auto 0.000 K/mm3 (0.0-0.012); Nucleated Red Blood Cells Perc 0.0 % (0.0-0.2); Platelet Count Result 237 k/mm3 (150-375); Red Blood Count 4.58 M/mm3 (4.6-6.20); White Blood Count 9.1 K/mm3 (4.5-10.0)
[2024-11-26 04:30] LABS: Alanine Aminotransferase 114 U/L (6-50); Albumin Level 4.0 g/dL (3.5-5.1); Alkaline Phosphatase 70 U/L (38-126); Anion Gap 12 mmol/L (4-12); Aspartate Amino Transferase 94 U/L (17-59); Bilirubin,Total 1.1 mg/dL (0.2-1.3); Blood Urea Nitrogen 23 mg/dL (9-20); Calcium 8.2 mg/dL (8.4-10.2); Carbon Dioxide 18 mmol/L (22-30); Chloride 105 mmol/L (98-107); Estimated CRCL calculation 76 ml/min; Estimated Glomerular Filt Rate > 60; Glucose 117 mg/dL (65-110); Potassium 4.0 mmol/L (3.4-5.0); Sodium 135 mmol/L (137-145); Total Protein 7.5 g/dL (6.3-8.2)
[2024-11-26 04:55] LABS: Lipase 3985 U/L (23-300)
[2024-11-26] MEDS: LEVOTHYROXINE SODIUM 125 MCG TABLET PO (06:32)
[2024-11-26] MEDS: UMECLIDINIUM/VILANTEROL 62.5-25 MCG ELLIPTA 1 PUFF INHALATION (07:30)
[2024-11-26] MEDS: APIXABAN 5 MG TABLET PO ×2 (08:52→21:04)
[2024-11-26] MEDS: PANTOPRAZOLE SODIUM IV 40 MG VIAL IV PUSH (08:54)
[2024-11-26] MEDS: FAMOTIDINE 20 MG/2 ML VIAL IV PUSH ×2 (08:54→21:04)
--- NOTE | 2024-11-26 15:20 | PM.IMPN ---
Progress Note: A&P Assessment and Plan (1) Acute pancreatitis: Qualifiers: Acute pancreatitis complication: no infection or necrosis Pancreatitis type: unspecified pancreatitis type Qualified Code(s): K85.90 - Acute pancreatitis without necrosis or infection, unspecified Code(s): K85.90 - Acute pancreatitis without necrosis or infection, unspecified Status: Acute Assessment and Plan: Hx of pancreatitis Lipase 74418 CT AP no acute changes however liver enzymes elevated, US liver ordered Patient noted pain hasimproved and started on Clear liquid diet PRN pain control with IV Dilaudid adn PO Hydrocodone monitor (2) Adult hypothyroidism: Code(s): E03.9 - Hypothyroidism, unspecified Status: Chronic Assessment and Plan: - previous lab work reviewed, TSH 2.7 to on 10/14/2024 - continue Synthroid (3) Essential (primary) hypertension: Code(s): I10 - Essential (primary) hypertension Status: Chronic Assessment and Plan: - chronic, currently 119/57 - hold home medications (olmesartan 20 mg daily, HCTZ 12.5 mg daily) given significant hypotension in the field. Resume when appropriate. Placed in IMU for close hemodynamic monitoring. Plan Elevater liver enzymes r/o biliary obstruction vs viral hepatitis AST 94/ALT 114 US liver adn Viral hepatitis panel ordered monitor Hx of PE conitnue Eliquis DVT Prophylaxis: Eliquis Code Status: Full code Subjective Date/time seen: 11/26/24 15:20 Interval history: Comfortable at bedside Review of Systems Review of Systems: All systems reviewed & are unremarkable except as noted in HPI and below Exam Const: General: no acute distress Other: , male, uncomfortable. + active vomiting. HENMT: Face/Nose/Sinus: Normal nares present Mouth: Yes moist mucous membranes Eyes: General: appearance normal, both eyes and all related structures Sclera: sclerae normal Pupils: Equal, round and reactive pupils present EOM: EOMs intact bilaterally Resp: Effort & Inspection: normal respiratory effort Auscultation: clear to auscultation bilaterally Cardio: Rate: regular rate Rhythm: regular rhythm Other: S1-S2 present without murmur, rub, ectopy GI: Other: Abdomen rounded but soft. Tender in the epigastric region. Normoactive bowel sounds in all quadrants. Skin: General skin exam: normal color and no rashes or lesions noted Wounds: no wounds Neuro: Cranial nerves: Yes Equal, round and reactive pupils present Speech: normal speech Motor exam (neuro): 5/5 motor strength present throughout Sensory Exam: normal sensation Other: A&O x4 Extrem: General: normal to inspection Psych: Mental Status: mental status grossly normal Affect: normal affect Other: Good insight and judgment Objective Data Vital Signs Vital Signs: Vital Signs - 24 hr 11/25/24 16:07 11/25/24 17:08 11/25/24 17:31 Temperature 97.5 F L 97.5 F L Pulse Rate 64 54 L 59 L Respiratory Rate 16 14 18 Blood Pressure 131/68 121/61 122/48 L Pulse Oximetry 99 97 93 Oxygen Delivery 11/25/24 18:00 11/25/24 19:56 11/25/24 19:57 Temperature Pulse Rate 58 L 58 L 54 L Respiratory Rate 18 Blood Pressure Pulse Oximetry 93 Oxygen Delivery Room Air 11/25/24 20:00 11/25/24 22:13 11/25/24 23:00 Temperature 97.5 F L Pulse Rate 67 57 L Respiratory Rate 18 Blood Pressure 119/57 L Pulse Oximetry 99 99 Oxygen Delivery Room Air 11/26/24 00:00 11/26/24 00:00 11/26/24 00:00 Temperature 97.7 F Pulse Rate 59 L 55 L 55 L Respiratory Rate 18 18 Blood Pressure 123/59 L Pulse Oximetry 99 98 Oxygen Delivery Room Air 11/26/24 02:34 11/26/24 03:59 11/26/24 04:00 Temperature Pulse Rate 64 65 65 Respiratory Rate 18 Blood Pressure Pulse Oximetry 99 Oxygen Delivery Room Air 11/26/24 04:00 11/26/24 06:00 11/26/24 07:30 Temperature 98 F Pulse Rate 62 65 73 Respiratory Rate 18 17 Blood Pressure 108/52 L Pulse Oximetry 97 Oxygen Delivery 11/26/24 07:34 11/26/24 07:35 11/26/24 08:00 Temperature 97.7 F Pulse Rate 75 70 Respiratory Rate 17 18 Blood Pressure 107/48 L Pulse Oximetry 100 100 Oxygen Delivery Room Air 11/26/24 08:00 11/26/24 10:00 11/26/24 12:00 Temperature 97.8 F Pulse Rate 72 74 75 Respiratory Rate 18 Blood Pressure 110/53 L Pulse Oximetry 97 Oxygen Delivery 11/26/24 12:00 11/26/24 14:00 Temperature Pulse Rate 74 72 Respiratory Rate Blood Pressure Pulse Oximetry Oxygen Delivery Intake/Output Intake/Output: Intake & Output 11/23/24 11/24/24 11/25/24 11/26/24 23:59 23:59 23:59 23:59 Intake Total 1000 2562.5 Output Total 1075 Balance 1000 1487.5 Meds/Results Medications: Active Medications Generic Name Dose Route Start Last Admin Trade Name Freq PRN Reason Stop Dose Admin Acetaminophen 650 mg 11/25/24 15:44 Acetaminophen 325 Mg Tablet PO Q4H PRN Mild Pain (1-3) or Fever Hydrocodone Bitart/Acetaminophen 1 tab 11/25/24 16:38 11/25/24 20:00 Hydrocodone/Acetaminophen (*Crx) 5-325 Mg Tablet PO 1 tab Q6H PRN Administration Pain Rated 4-6 Apixaban 5 mg 11/25/24 21:00 11/26/24 08:52 Apixaban 5 Mg Tablet PO 5 mg Q12HR OWEN Administration Famotidine 20 mg 11/25/24 21:00 11/26/24 08:54 Famotidine 20 Mg/2 Ml Vial IV PUSH 20 mg Q12HR OWEN Administration Hydromorphone HCl 1 mg 11/25/24 21:04 11/26/24 09:23 Hydromorphone Hcl Inj (*Crx) 1 Mg/Ml Syr IV PUSH 1 mg Q4H PRN Administration Pain Rated 7-10 Sodium Chloride 1,000 mls @ 125 mls/hr 11/25/24 15:45 11/26/24 08:54 Normal Saline Iv IV CONT 125 mls/hr .Q8H OWEN Administration Levothyroxine Sodium 125 mcg 11/26/24 06:30 11/26/24 06:32 Levothyroxine Sodium 125 Mcg Tablet PO 125 mcg DAILY@0630 OWEN Administration Ondansetron HCl 4 mg 11/25/24 16:38 11/25/24 22:15 Ondansetron Inj 4 Mg/2 Ml Vial IV PUSH 4 mg Q6H PRN Administration Nausea And Vomiting Pantoprazole Sodium 40 mg 11/26/24 09:00 11/26/24 08:54 Pantoprazole Sodium Iv 40 Mg Vial IV PUSH 40 mg QAM OWEN Administration Umeclidinium/Vilanterol 1 puff 11/26/24 09:00 11/26/24 07:30 Umeclidinium/Vilanterol 62.5-25 Mcg Ellipta INHALATION 1 puff DAILY OWEN Administration Radiology Results: ITS Impressions Chest X-Ray 11/25/24 13:38 Impression: 1: Mild chronic pulmonary vascular congestion. Chest/Abdomen/Pelvis CTA 11/25/24 13:50 IMPRESSION: 1. No acute abnormality of the chest, abdomen and pelvis. Labs Labs: Laboratory Results - last 24 hr 11/25/24 11/25/24 11/25/24 16:08 17:01 19:52 WBC RBC Hgb Hct MCV MCH MCHC RDW Plt Count MPV Immature Gran % (Auto) Neut % (Auto) Lymph % (Auto) [place] % (Auto) Eos % (Auto) Baso % (Auto) Lymph # (Auto) [place] # (Auto) Eos # (Auto) Baso # (Auto) Abs Immat Gran (auto) Absolute Neuts (auto) Absolute Nucleated RBC Nucleated RBC % Sodium Potassium Chloride Carbon Dioxide Anion Gap BUN Creatinine Estim Creat Clear Calc Estimated GFR Glucose Calcium Total Bilirubin AST ALT Alkaline Phosphatase Troponin I < 0.012 < 0.012 Total Protein Albumin Lipase Urine Color Yellow Urine Appearance Clear Urine pH 5.5 Ur Specific [place] 1.040 H Urine Protein Negative Urine Glucose (UA) Negative Urine Ketones Trace H Ur Blood (Man) Negative Urine Nitrate Negative Urine Bilirubin Negative Urine Urobilinogen 0.2 Leukocyte Esterase Rfl Negative Urine RBC 0-2 Urine WBC 0-5 Ur Squamous Epith Cells None seen Urine Bacteria None seen Urine Casts 3-5 11/26/24 03:44 WBC 9.1 RBC 4.58 L Hgb 14.3 Hct 43.2 MCV 94.3 MCH 31.2 MCHC 33.1 RDW 13.3 Plt Count 237 MPV 10.1 Immature Gran % (Auto) 0.2 Neut % (Auto) 87.9 H Lymph % (Auto) 7.0 L [place] % (Auto) 4.5 Eos % (Auto) 0.2 Baso % (Auto) 0.2 Lymph # (Auto) 0.64 L [place] # (Auto) 0.4 Eos # (Auto) 0.0 Baso # (Auto) 0.0 Abs Immat Gran (auto) 0.02 Absolute Neuts (auto) 8.0 H Absolute Nucleated RBC 0.000 Nucleated RBC % 0.0 Sodium 135 L Potassium 4.0 Chloride 105 Carbon Dioxide 18 L Anion Gap 12 BUN 23 H Creatinine 1.19 Estim Creat Clear Calc 76 Estimated GFR > 60 Glucose 117 H Calcium 8.2 L Total Bilirubin 1.1 AST 94 H ALT 114 H Alkaline Phosphatase 70 Troponin I Total Protein 7.5 Albumin 4.0 Lipase 3985 H Urine Color Urine Appearance Urine pH Ur Specific [place] Urine Protein Urine Glucose (UA) Urine Ketones Ur Blood (Man) Urine Nitrate Urine Bilirubin Urine Urobilinogen Leukocyte Esterase Rfl Urine RBC Urine WBC Ur Squamous Epith Cells Urine Bacteria Urine Casts Quality VTE Prophylaxis VTE prophylaxis: pharmacologic ordered
[2024-11-26] MEDS: HYDROcodone/acetaminophen (*CRX) 5-325 MG TABLET 1 TAB PO (21:04)
[2024-11-27] VITALS (10 sets, daily range): BP systolic 109–132; BP diastolic 39–59; PULSE 47–92; RESP 16–22; TEMP 36.8–38.1; O2SAT 92–99
[2024-11-27] MEDS: SODIUM CHLORIDE 0.9% IV 1,000 ML 125 ML IV CONT ×3 (00:38→17:53)
[2024-11-27] MEDS: HYDROmorphone HCL INJ (*CRX) 1 MG/ML SYR IV PUSH ×4 (01:45→23:43)
[2024-11-27] MEDS: ONDANSETRON INJ 4 MG/2 ML VIAL IV PUSH (01:45)
[2024-11-27 03:48] LABS: Hematocrit 38.6 % (42.0-52.0); Hemoglobin 12.8 g/dL (14.0-18.0); Immature Granulocyte Percent A 0.6 % (0-0.5); Lymphocytes Absolute Auto 0.73 K/mm3 (0.9-3.2); Mean Corpuscular HGB Conc 33.2 g/dl (32-36); Mean Corpuscular Hemoglobin 30.8 pg (26-34); Mean Corpuscular Volume 93.0 fl (80-100); Nucleated Red Blood Cells Absolute Auto 0.000 K/mm3 (0.0-0.012); Nucleated Red Blood Cells Perc 0.0 % (0.0-0.2); Platelet Count Result 209 k/mm3 (150-375); Red Blood Count 4.15 M/mm3 (4.6-6.20); White Blood Count 16.6 K/mm3 (4.5-10.0)
[2024-11-27 04:29] LABS: Alanine Aminotransferase 60 U/L (6-50); Albumin Level 3.2 g/dL (3.5-5.1); Alkaline Phosphatase 75 U/L (38-126); Anion Gap 6 mmol/L (4-12); Aspartate Amino Transferase 43 U/L (17-59); Bilirubin,Total 0.9 mg/dL (0.2-1.3); Blood Urea Nitrogen 17 mg/dL (9-20); Calcium 8.0 mg/dL (8.4-10.2); Carbon Dioxide 22 mmol/L (22-30); Chloride 106 mmol/L (98-107); Cholesterol 100 mg/dL (0-200); Estimated CRCL calculation 75 ml/min; Estimated Glomerular Filt Rate 59; Glucose 95 mg/dL (65-110); HDL Direct 39 mg/dL; Magnesium 1.9 mg/dL (1.6-2.3); Potassium 4.3 mmol/L (3.4-5.0); Sodium 134 mmol/L (137-145); Total Protein 6.3 g/dL (6.3-8.2); Triglycerides 42 mg/dL (<150)
[2024-11-27 04:55] LABS: Hepatitis B Surface Antigen Negative (Negative)
[2024-11-27 05:01] LABS: HAV RESULT Negative (Negative); Hepatitis B Core IgM Result Negative (Negative)
[2024-11-27] MEDS: LEVOTHYROXINE SODIUM 125 MCG TABLET PO (06:24)
[2024-11-27] MEDS: UMECLIDINIUM/VILANTEROL 62.5-25 MCG ELLIPTA 1 PUFF INHALATION (08:24)
[2024-11-27] MEDS: FAMOTIDINE 20 MG/2 ML VIAL IV PUSH ×2 (09:11→20:31)
[2024-11-27] MEDS: PANTOPRAZOLE SODIUM IV 40 MG VIAL IV PUSH (09:11)
[2024-11-27] MEDS: HYDROcodone/acetaminophen (*CRX) 5-325 MG TABLET 1 TAB PO (09:11)
[2024-11-27] MEDS: APIXABAN 5 MG TABLET PO ×2 (09:12→20:31)
--- NOTE | 2024-11-27 12:15 | PM.IMPN ---
Progress Note: A&P Assessment and Plan (1) Acute pancreatitis: Qualifiers: Acute pancreatitis complication: no infection or necrosis Pancreatitis type: unspecified pancreatitis type Qualified Code(s): K85.90 - Acute pancreatitis without necrosis or infection, unspecified Code(s): K85.90 - Acute pancreatitis without necrosis or infection, unspecified Status: Acute Assessment and Plan: Hx of pancreatitis Lipase [address]296 CT AP no acute changes however liver enzymes elevated, US liver ordered Not tolerating diet, NPo now PRN pain control with IV Dilaudid adn PO Hydrocodone monitor (2) Adult hypothyroidism: Code(s): E03.9 - Hypothyroidism, unspecified Status: Chronic Assessment and Plan: - previous lab work reviewed, TSH 2.7 to on 10/14/2024 - continue Synthroid (3) Essential (primary) hypertension: Code(s): I10 - Essential (primary) hypertension Status: Chronic Assessment and Plan: - chronic, currently 119/57 - hold home medications (olmesartan 20 mg daily, HCTZ 12.5 mg daily) given significant hypotension in the field. Resume when appropriate. Placed in IMU for close hemodynamic monitoring. Plan Elevated liver enzymes r/o biliary obstruction vs viral hepatitis AST 94/ALT 114, hepatitis viral panel negative US liver monitor Hx of PE continue Eliquis DVT Prophylaxis: Eliquis Code Status: Full code Subjective Date/time seen: 11/27/24 12:15 Interval history: Patient noted pain with fluid diet now back on NPO Review of Systems Review of Systems: All systems reviewed & are unremarkable except as noted in HPI and below Exam Const: General: no acute distress Other: , male, uncomfortable. + active vomiting. HENMT: Face/Nose/Sinus: Normal nares present Mouth: Yes moist mucous membranes Eyes: General: appearance normal, both eyes and all related structures Sclera: sclerae normal Pupils: Equal, round and reactive pupils present EOM: EOMs intact bilaterally Resp: Effort & Inspection: normal respiratory effort Auscultation: clear to auscultation bilaterally Cardio: Rate: regular rate Rhythm: regular rhythm Other: S1-S2 present without murmur, rub, ectopy GI: Other: Abdomen rounded but soft. Tender in the epigastric region. Normoactive bowel sounds in all quadrants. Skin: General skin exam: normal color and no rashes or lesions noted Wounds: no wounds Neuro: Cranial nerves: Yes Equal, round and reactive pupils present Speech: normal speech Motor exam (neuro): 5/5 motor strength present throughout Sensory Exam: normal sensation Other: A&O x4 Extrem: General: normal to inspection Psych: Mental Status: mental status grossly normal Affect: normal affect Other: Good insight and judgment Objective Data Vital Signs Vital Signs: Vital Signs - 24 hr 11/26/24 14:00 11/26/24 15:57 11/26/24 16:00 Temperature 98.5 F Pulse Rate 72 93 80 Respiratory Rate 16 Blood Pressure 106/42 L Pulse Oximetry 96 Oxygen Delivery 11/26/24 18:00 11/26/24 19:47 11/26/24 20:00 Temperature 99.3 F Pulse Rate 104 H 86 82 Respiratory Rate 14 Blood Pressure 114/47 L Pulse Oximetry 97 Oxygen Delivery 11/26/24 20:00 11/26/24 22:00 11/26/24 23:04 Temperature Pulse Rate 85 Respiratory Rate Blood Pressure Pulse Oximetry 98 Oxygen Delivery Room Air Room Air 11/27/24 00:00 11/27/24 00:00 11/27/24 00:00 Temperature 100.6 F H Pulse Rate 87 84 Respiratory Rate 17 Blood Pressure 122/57 L Pulse Oximetry 96 Oxygen Delivery Room Air 11/27/24 02:00 11/27/24 04:00 11/27/24 04:00 Temperature 99.5 F Pulse Rate 86 91 Respiratory Rate 16 Blood Pressure 109/39 L Pulse Oximetry 96 Oxygen Delivery Room Air 11/27/24 04:00 11/27/24 06:00 11/27/24 08:00 Temperature 99.4 F Pulse Rate 85 83 92 Respiratory Rate 22 H Blood Pressure 114/53 L Pulse Oximetry 92 Oxygen Delivery 11/27/24 08:00 11/27/24 08:00 11/27/24 08:25 Temperature Pulse Rate 81 81 86 Respiratory Rate 17 17 Blood Pressure Pulse Oximetry 92 Oxygen Delivery Room Air 11/27/24 10:00 Temperature Pulse Rate 82 Respiratory Rate Blood Pressure Pulse Oximetry Oxygen Delivery Intake/Output Intake/Output: Intake & Output 11/24/24 11/25/24 11/26/24 11/27/24 23:59 23:59 23:59 23:59 Intake Total 1000 3560.4 2208.8 Output Total 1075 650 Balance 1000 2485.4 1558.8 Meds/Results Medications: Active Medications Generic Name Dose Route Start Last Admin Trade Name Freq PRN Reason Stop Dose Admin Acetaminophen 650 mg 11/25/24 15:44 Acetaminophen 325 Mg Tablet PO Q4H PRN Mild Pain (1-3) or Fever Hydrocodone Bitart/Acetaminophen 1 tab 11/25/24 16:38 11/27/24 09:11 Hydrocodone/Acetaminophen (*Crx) 5-325 Mg Tablet PO 1 tab Q6H PRN Administration Pain Rated 4-6 Apixaban 5 mg 11/25/24 21:00 11/27/24 09:12 Apixaban 5 Mg Tablet PO 5 mg Q12HR OWEN Administration Famotidine 20 mg 11/25/24 21:00 11/27/24 09:11 Famotidine 20 Mg/2 Ml Vial IV PUSH 20 mg Q12HR OWEN Administration Hydromorphone HCl 1 mg 11/25/24 21:04 11/27/24 07:45 Hydromorphone Hcl Inj (*Crx) 1 Mg/Ml Syr IV PUSH 1 mg Q4H PRN Administration Pain Rated 7-10 Sodium Chloride 1,000 mls @ 125 mls/hr 11/25/24 15:45 11/27/24 09:15 Normal Saline Iv IV CONT 125 mls/hr .Q8H OWEN Administration Levothyroxine Sodium 125 mcg 11/26/24 06:30 11/27/24 06:24 Levothyroxine Sodium 125 Mcg Tablet PO 125 mcg DAILY@0630 OWEN Administration Ondansetron HCl 4 mg 11/25/24 16:38 11/27/24 01:45 Ondansetron Inj 4 Mg/2 Ml Vial IV PUSH 4 mg Q6H PRN Administration Nausea And Vomiting Pantoprazole Sodium 40 mg 11/26/24 09:00 11/27/24 09:11 Pantoprazole Sodium Iv 40 Mg Vial IV PUSH 40 mg QAM OWEN Administration Umeclidinium/Vilanterol 1 puff 11/26/24 09:00 11/27/24 08:24 Umeclidinium/Vilanterol 62.5-25 Mcg Ellipta INHALATION 1 puff DAILY OWEN Administration Radiology Results: ITS Impressions Chest X-Ray 11/25/24 13:38 Impression: 1: Mild chronic pulmonary vascular congestion. Chest/Abdomen/Pelvis CTA 11/25/24 13:50 IMPRESSION: 1. No acute abnormality of the chest, abdomen and pelvis. Labs Labs: Laboratory Results - last 24 hr 11/27/24 03:26 WBC 16.6 H RBC 4.15 L Hgb 12.8 L Hct 38.6 L MCV 93.0 MCH 30.8 MCHC 33.2 RDW 13.7 Plt Count 209 MPV 9.9 Immature Gran % (Auto) 0.6 H Neut % (Auto) 89.3 H Lymph % (Auto) 4.4 L [place] % (Auto) 5.3 Eos % (Auto) 0.1 Baso % (Auto) 0.3 Lymph # (Auto) 0.73 L [place] # (Auto) 0.9 H Eos # (Auto) 0.0 Baso # (Auto) 0.1 Abs Immat Gran (auto) 0.10 H Absolute Neuts (auto) 14.8 H Absolute Nucleated RBC 0.000 Nucleated RBC % 0.0 Sodium 134 L Potassium 4.3 Chloride 106 Carbon Dioxide 22 Anion Gap 6 BUN 17 Creatinine 1.22 Estim Creat Clear Calc 75 Estimated GFR 59 Glucose 95 Calcium 8.0 L Magnesium 1.9 Total Bilirubin 0.9 AST 43 ALT 60 H Alkaline Phosphatase 75 Total Protein 6.3 Albumin 3.2 L Triglycerides 42 Cholesterol 100 LDL Cholesterol Direct < 30 HDL Direct 39 Hepatitis A IgM Ab Negative Hep Bs Antigen Negative Hep B Core IgM Ab Negative Hepatitis C Ab Screen Negative Quality VTE Prophylaxis VTE prophylaxis: pharmacologic ordered
[2024-11-28] MEDS: SODIUM CHLORIDE 0.9% IV 1,000 ML 125 ML IV CONT ×3 (03:07→20:14)
[2024-11-28] MEDS: HYDROmorphone HCL INJ (*CRX) 1 MG/ML SYR IV PUSH (03:28)
[2024-11-28 05:43] LABS: Hematocrit 36.6 % (42.0-52.0); Hemoglobin 12.3 g/dL (14.0-18.0); Immature Granulocyte Percent A 0.9 % (0-0.5); Lymphocytes Absolute Auto 0.79 K/mm3 (0.9-3.2); Mean Corpuscular HGB Conc 33.6 g/dl (32-36); Mean Corpuscular Hemoglobin 31.6 pg (26-34); Mean Corpuscular Volume 94.1 fl (80-100); Nucleated Red Blood Cells Absolute Auto 0.000 K/mm3 (0.0-0.012); Nucleated Red Blood Cells Perc 0.0 % (0.0-0.2); Platelet Count Result 186 k/mm3 (150-375); Red Blood Count 3.89 M/mm3 (4.6-6.20); White Blood Count 16.0 K/mm3 (4.5-10.0)
[2024-11-28 06:00] VITALS: BP 112/60; PULSE 85; RESP 16; TEMP 36.6; O2SAT 94
[2024-11-28 06:01] LABS: Alanine Aminotransferase 39 U/L (6-50); Albumin Level 3.0 g/dL (3.5-5.1); Alkaline Phosphatase 75 U/L (38-126); Anion Gap 7 mmol/L (4-12); Aspartate Amino Transferase 44 U/L (17-59); Bilirubin,Total 1.1 mg/dL (0.2-1.3); Blood Urea Nitrogen 15 mg/dL (9-20); Calcium 8.0 mg/dL (8.4-10.2); Carbon Dioxide 20 mmol/L (22-30); Chloride 107 mmol/L (98-107); Estimated CRCL calculation 84 ml/min; Estimated Glomerular Filt Rate > 60; Glucose 101 mg/dL (65-110); Magnesium 1.9 mg/dL (1.6-2.3); Potassium 3.9 mmol/L (3.4-5.0); Sodium 134 mmol/L (137-145); Total Protein 6.1 g/dL (6.3-8.2)
[2024-11-28] MEDS: LEVOTHYROXINE SODIUM 125 MCG TABLET PO (06:14)
[2024-11-28 08:32] VITALS: O2SAT 91
[2024-11-28] MEDS: UMECLIDINIUM/VILANTEROL 62.5-25 MCG ELLIPTA 1 PUFF INHALATION (08:32)
[2024-11-28] MEDS: FAMOTIDINE 20 MG/2 ML VIAL IV PUSH ×2 (09:23→20:14)
[2024-11-28] MEDS: PANTOPRAZOLE SODIUM IV 40 MG VIAL IV PUSH (09:23)
[2024-11-28] MEDS: APIXABAN 5 MG TABLET PO ×2 (09:23→20:14)
[2024-11-28] MEDS: HYDROcodone/acetaminophen (*CRX) 5-325 MG TABLET 1 TAB PO ×3 (09:29→22:16)
--- NOTE | 2024-11-28 12:53 | PM.IMPN ---
Progress Note: A&P Assessment and Plan (1) Acute pancreatitis: Qualifiers: Acute pancreatitis complication: no infection or necrosis Pancreatitis type: unspecified pancreatitis type Qualified Code(s): K85.90 - Acute pancreatitis without necrosis or infection, unspecified Code(s): K85.90 - Acute pancreatitis without necrosis or infection, unspecified Status: Acute Assessment and Plan: Hx of pancreatitis Lipase [address]1794 CT AP no acute changes however liver enzymes elevated, US liver unremarkable on clear liquid diet PRN pain control with IV Dilaudid adn PO Hydrocodone monitor (2) Adult hypothyroidism: Code(s): E03.9 - Hypothyroidism, unspecified Status: Chronic Assessment and Plan: - previous lab work reviewed, TSH 2.7 to on 10/14/2024 - continue Synthroid (3) Essential (primary) hypertension: Code(s): I10 - Essential (primary) hypertension Status: Chronic Assessment and Plan: - chronic, currently 119/57 - hold home medications (olmesartan 20 mg daily, HCTZ 12.5 mg daily) given significant hypotension in the field. Resume when appropriate. Placed in IMU for close hemodynamic monitoring. Plan Elevated liver enzymes, resolved r/o biliary obstruction vs viral hepatitis AST 44/ALT 39, hepatitis viral panel negative US liver unremarkable monitor Hx of PE continue Eliquis DVT Prophylaxis: Eliquis Code Status: Full code Subjective Date/time seen: 11/28/24 12:53 Interval history: Patient noted pain with fluid diet Continue clear liquir diet, still having abd pain with food Review of Systems Review of Systems: All systems reviewed & are unremarkable except as noted in HPI and below Exam Const: General: no acute distress Other: , male, uncomfortable. + active vomiting. HENMT: Face/Nose/Sinus: Normal nares present Mouth: Yes moist mucous membranes Eyes: General: appearance normal, both eyes and all related structures Sclera: sclerae normal Pupils: Equal, round and reactive pupils present EOM: EOMs intact bilaterally Resp: Effort & Inspection: normal respiratory effort Auscultation: clear to auscultation bilaterally Cardio: Rate: regular rate Rhythm: regular rhythm Other: S1-S2 present without murmur, rub, ectopy GI: Other: Abdomen rounded but soft. Tender in the epigastric region. Normoactive bowel sounds in all quadrants. Skin: General skin exam: normal color and no rashes or lesions noted Wounds: no wounds Neuro: Cranial nerves: Yes Equal, round and reactive pupils present Speech: normal speech Motor exam (neuro): 5/5 motor strength present throughout Sensory Exam: normal sensation Other: A&O x4 Extrem: General: normal to inspection Psych: Mental Status: mental status grossly normal Affect: normal affect Other: Good insight and judgment Objective Data Vital Signs Vital Signs: Vital Signs - 24 hr 11/27/24 16:00 11/27/24 20:00 11/27/24 22:25 Temperature 98.8 F 98.4 F Pulse Rate 84 47 L Respiratory Rate 18 16 Blood Pressure 132/59 L 122/44 L Pulse Oximetry 99 94 Oxygen Delivery Room Air 11/28/24 06:00 11/28/24 08:32 11/28/24 09:30 Temperature 97.8 F Pulse Rate 85 Respiratory Rate 16 Blood Pressure 112/60 Pulse Oximetry 94 91 Oxygen Delivery Room Air Room Air Intake/Output Intake/Output: Intake & Output 11/25/24 11/26/24 11/27/24 11/28/24 23:59 23:59 23:59 23:59 Intake Total 1000 3560.4 3928.8 2520 Output Total 4564 893 7877 Balance 1000 2485.4 3128.8 1120 Meds/Results Medications: Active Medications Generic Name Dose Route Start Last Admin Trade Name Freq PRN Reason Stop Dose Admin Acetaminophen 650 mg 11/25/24 15:44 Acetaminophen 325 Mg Tablet PO Q4H PRN Mild Pain (1-3) or Fever Hydrocodone Bitart/Acetaminophen 1 tab 11/25/24 16:38 11/28/24 09:29 Hydrocodone/Acetaminophen (*Crx) 5-325 Mg Tablet PO 1 tab Q6H PRN Administration Pain Rated 4-6 Apixaban 5 mg 11/25/24 21:00 11/28/24 09:23 Apixaban 5 Mg Tablet PO 5 mg Q12HR OWEN Administration Famotidine 20 mg 11/25/24 21:00 11/28/24 09:23 Famotidine 20 Mg/2 Ml Vial IV PUSH 20 mg Q12HR OWEN Administration Hydromorphone HCl 1 mg 11/25/24 21:04 11/28/24 03:28 Hydromorphone Hcl Inj (*Crx) 1 Mg/Ml Syr IV PUSH 1 mg Q4H PRN Administration Pain Rated 7-10 Sodium Chloride 1,000 mls @ 125 mls/hr 11/25/24 15:45 11/28/24 11:23 Normal Saline Iv IV CONT 125 mls/hr .Q8H OWEN Administration Levothyroxine Sodium 125 mcg 11/26/24 06:30 11/28/24 06:14 Levothyroxine Sodium 125 Mcg Tablet PO 125 mcg DAILY@0630 OWEN Administration Ondansetron HCl 4 mg 11/25/24 16:38 11/27/24 01:45 Ondansetron Inj 4 Mg/2 Ml Vial IV PUSH 4 mg Q6H PRN Administration Nausea And Vomiting Pantoprazole Sodium 40 mg 11/26/24 09:00 11/28/24 09:23 Pantoprazole Sodium Iv 40 Mg Vial IV PUSH 40 mg QAM OWEN Administration Umeclidinium/Vilanterol 1 puff 11/26/24 09:00 11/28/24 08:32 Umeclidinium/Vilanterol 62.5-25 Mcg Ellipta INHALATION 1 puff DAILY OWEN Administration Radiology Results: ITS Impressions Chest X-Ray 11/25/24 13:38 Impression: 1: Mild chronic pulmonary vascular congestion. Chest/Abdomen/Pelvis CTA 11/25/24 13:50 IMPRESSION: 1. No acute abnormality of the chest, abdomen and pelvis. Abdomen Ultrasound 11/28/24 07:58 IMPRESSION: 1. Unremarkable right upper quadrant ultrasound although evaluation is limited by patient body habitus Labs Labs: Laboratory Results - last 24 hr 11/28/24 05:21 WBC 16.0 H RBC 3.89 L Hgb 12.3 L Hct 36.6 L MCV 94.1 MCH 31.6 MCHC 33.6 RDW 13.7 Plt Count 186 MPV 10.2 Immature Gran % (Auto) 0.9 H Neut % (Auto) 87.1 H Lymph % (Auto) 4.9 L [place] % (Auto) 6.7 Eos % (Auto) 0.2 Baso % (Auto) 0.2 Lymph # (Auto) 0.79 L [place] # (Auto) 1.1 H Eos # (Auto) 0.0 Baso # (Auto) 0.0 Abs Immat Gran (auto) 0.15 H Absolute Neuts (auto) 13.9 H Absolute Nucleated RBC 0.000 Nucleated RBC % 0.0 Sodium 134 L Potassium 3.9 Chloride 107 Carbon Dioxide 20 L Anion Gap 7 BUN 15 Creatinine 1.08 Estim Creat Clear Calc 84 Estimated GFR > 60 Glucose 101 Calcium 8.0 L Magnesium 1.9 Total Bilirubin 1.1 AST 44 ALT 39 Alkaline Phosphatase 75 Total Protein 6.1 L Albumin 3.0 L Quality VTE Prophylaxis VTE prophylaxis: pharmacologic ordered
[2024-11-28 14:00] VITALS: BP 134/61; PULSE 78; RESP 18; TEMP 36.8; O2SAT 97
[2024-11-28 22:00] VITALS: BP 142/70; PULSE 75; RESP 18; TEMP 36.3; O2SAT 99
[2024-11-29] MEDS: SODIUM CHLORIDE 0.9% IV 1,000 ML 125 ML IV CONT ×2 (05:01→14:30)
[2024-11-29] MEDS: HYDROcodone/acetaminophen (*CRX) 5-325 MG TABLET 1 TAB PO ×3 (05:02→17:44)
[2024-11-29 05:57] LABS: Hematocrit 37.2 % (42.0-52.0); Hemoglobin 12.5 g/dL (14.0-18.0); Immature Granulocyte Percent A 0.6 % (0-0.5); Lymphocytes Absolute Auto 0.62 K/mm3 (0.9-3.2); Mean Corpuscular HGB Conc 33.6 g/dl (32-36); Mean Corpuscular Hemoglobin 31.1 pg (26-34); Mean Corpuscular Volume 92.5 fl (80-100); Nucleated Red Blood Cells Absolute Auto 0.000 K/mm3 (0.0-0.012); Nucleated Red Blood Cells Perc 0.0 % (0.0-0.2); Platelet Count Result 205 k/mm3 (150-375); Red Blood Count 4.02 M/mm3 (4.6-6.20); White Blood Count 13.7 K/mm3 (4.5-10.0)
[2024-11-29 06:00] VITALS: BP 145/81; PULSE 76; RESP 18; TEMP 37.1; O2SAT 97
[2024-11-29] MEDS: LEVOTHYROXINE SODIUM 125 MCG TABLET PO (06:20)
[2024-11-29 06:22] LABS: Alanine Aminotransferase 42 U/L (6-50); Albumin Level 3.2 g/dL (3.5-5.1); Alkaline Phosphatase 99 U/L (38-126); Anion Gap 7 mmol/L (4-12); Aspartate Amino Transferase 51 U/L (17-59); Bilirubin,Total 2.4 mg/dL (0.2-1.3); Blood Urea Nitrogen 13 mg/dL (9-20); Calcium 8.2 mg/dL (8.4-10.2); Carbon Dioxide 19 mmol/L (22-30); Chloride 106 mmol/L (98-107); Estimated CRCL calculation 106 ml/min; Estimated Glomerular Filt Rate > 60; Glucose 101 mg/dL (65-110); Magnesium 1.9 mg/dL (1.6-2.3); Potassium 3.7 mmol/L (3.4-5.0); Sodium 132 mmol/L (137-145); Total Protein 6.4 g/dL (6.3-8.2)
[2024-11-29] MEDS: UMECLIDINIUM/VILANTEROL 62.5-25 MCG ELLIPTA 1 PUFF INHALATION (07:54)
[2024-11-29] MEDS: APIXABAN 5 MG TABLET PO ×2 (10:02→20:47)
[2024-11-29] MEDS: FAMOTIDINE 20 MG/2 ML VIAL IV PUSH ×2 (10:03→20:47)
[2024-11-29] MEDS: PANTOPRAZOLE SODIUM IV 40 MG VIAL IV PUSH (10:03)
[2024-11-29 14:00] VITALS: BP 130/64; PULSE 73; RESP 20; TEMP 36.3; O2SAT 98
--- NOTE | 2024-11-29 14:56 | P.PNIM_ITS ---
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 The patient presents here from home via EMS on 11/25 for further evaluation of abdominal pain. He reports onset of severe abdominal pain starting around 11 a.m. He described the abdominal pain as -> sharp, epigastric, nonradiating, constant but severity varies, no aggravating factors, and pressure/sitting up can somewhat alleviate it. Pain is accompanied by nausea and vomiting. He denies fever, chills, or body aches. The abdominal pain had prompted him to call EMS. Upon their arrival the patient's systolic blood pressure was in the 80s. However after they transferred him to the ambulance his blood pressure had dropped to 52/25. Given his presenting symptoms and severe hypotension, EMS became concerned for a AAA rupture which prompted them to give him 1G of TXA and 1 mg of Epinephrine. He received 2L of fluids and arrived to the emergency department with a blood pressure of 112/52. He has had no additional hypotensive episode since arrival. He has a hx of pancreatitis, unknown etiology. Denies any recent alcohol use in the last 4 months. Initial VS at presentation: 97.4? F, HR 65, R 12, 112/52, and 96% on RA. ED workup showed: No leukocytosis, hemoglobin 13.6, INR 1.6, creatinine 1.8 and GFR 38 (1.1 and GFR 57 on 04/26/2023), glucose 140, total bilirubin 1.6, AST 65, ALT 54, lipase of 17,071, procalcitonin 0.1. UA showed a high specific gravity and trace ketones otherwise unremarkable. Viral PCR negative. CXR showed mild chronic pulmonary vascular congestion. CTA of the chest/abdomen/pelvis showed no acute abnormality. Acute pancreatitis: Mildly improved pain. Continue normal saline. Continue pain regimen. Initially hypotensive EN route with EMS, now resolved. Clear liquid diet. Transaminitis: Present on admission, resolved. Feeling OUTSIDE SALES ACCOUNT MANAGER pravastatin Elevated bilirubin: Total bilirubin 2.4 on 11/29/2024. Hemoglobin is stable. On 11/28/2024 upper quadrant ultrasound unremarkable although evaluation is limited by the patient's body habitus. MRCP pending. Chronic hypertension: Hypotensive on arrival, resolved. Continue to hold OUTSIDE SALES ACCOUNT MANAGER hydrochlorothiazide and olmesartan. Continue monitoring. Hypothyroidism: Resume OUTSIDE SALES ACCOUNT MANAGER levothyroxine Patient wishes to be full code. Clear liquid diet. Famotidine 20 mg IV b.i.d. Continue OUTSIDE SALES ACCOUNT MANAGER Eliquis Subjective Date/time seen: 11/29/24 14:56 Interval history: No major acute overnight events. He thinks is abdominal pain is slightly better. Vomiting, had a bowel movement the day prior. Denies fever. Review of Systems Review of Systems: All systems reviewed & are unremarkable except as noted in HPI and below (Subjective) Exam Const: General: comfortable and no acute distress Other: A&O x3 HENMT: Mouth: Yes moist mucous membranes Eyes: Pupils: Equal, round and reactive pupils present Neck: Neck: supple Resp: Effort & Inspection: normal respiratory effort Auscultation: clear to auscultation bilaterally Cardio: Rate: regular rate Rhythm: regular rhythm GI: Other: Mild distension, bowel sounds active, soft, mild tenderness in the epigastric region, mildly positive Cano sign Neuro: Motor exam (neuro): 5/5 motor strength present throughout Extrem: General: no edema Objective Data Vital Signs Vital Signs: Vital Signs - 24 hr 11/28/24 20:00 11/28/24 22:00 11/29/24 06:00 Temperature 97.4 F L 98.7 F Pulse Rate 75 76 Respiratory Rate 18 18 Blood Pressure 142/70 H 145/81 H Pulse Oximetry 99 97 Oxygen Delivery Room Air Intake/Output Intake/Output: Intake & Output 11/26/24 11/27/24 11/28/24 11/29/24 23:59 23:59 23:59 23:59 Intake Total 3560.4 3928.8 4310 2360 Output Total 9817 060 7482 100 Balance 2485.4 3128.8 2410 2260 Meds/Results Medications: Active Medications Generic Name Dose Route Start Last Admin Trade Name Freq PRN Reason Stop Dose Admin Acetaminophen 650 mg 11/25/24 15:44 Acetaminophen 325 Mg Tablet PO Q4H PRN Mild Pain (1-3) or Fever Hydrocodone Bitart/Acetaminophen 1 tab 11/25/24 16:38 11/29/24 10:02 Hydrocodone/Acetaminophen (*Crx) 5-325 Mg Tablet PO 1 tab Q6H PRN Administration Pain Rated 4-6 Apixaban 5 mg 11/25/24 21:00 11/29/24 10:02 Apixaban 5 Mg Tablet PO 5 mg Q12HR OWEN Administration Famotidine 20 mg 11/25/24 21:00 11/29/24 10:03 Famotidine 20 Mg/2 Ml Vial IV PUSH 20 mg Q12HR OWEN Administration Hydromorphone HCl 0.5 mg 11/29/24 14:55 Hydromorphone Hcl Inj (*Crx) 1 Mg/Ml Syr IV PUSH Q4H PRN Pain Rated 7-10 Sodium Chloride 1,000 mls @ 125 mls/hr 11/25/24 15:45 11/29/24 14:30 Normal Saline Iv IV CONT 125 mls/hr .Q8H OWEN Administration Levothyroxine Sodium 125 mcg 11/26/24 06:30 11/29/24 06:20 Levothyroxine Sodium 125 Mcg Tablet PO 125 mcg DAILY@0630 OWEN Administration Ondansetron HCl 4 mg 11/25/24 16:38 11/27/24 01:45 Ondansetron Inj 4 Mg/2 Ml Vial IV PUSH 4 mg Q6H PRN Administration Nausea And Vomiting Umeclidinium/Vilanterol 1 puff 11/26/24 09:00 11/29/24 07:54 Umeclidinium/Vilanterol 62.5-25 Mcg Ellipta INHALATION 1 puff DAILY OWEN Administration Radiology Results: ITS Impressions Chest X-Ray 11/25/24 13:38 Impression: 1: Mild chronic pulmonary vascular congestion. Chest/Abdomen/Pelvis CTA 11/25/24 13:50 IMPRESSION: 1. No acute abnormality of the chest, abdomen and pelvis. Abdomen Ultrasound 11/28/24 07:58 IMPRESSION: 1. Unremarkable right upper quadrant ultrasound although evaluation is limited by patient body habitus Labs Labs: Laboratory Results - last 24 hr 11/29/24 05:36 WBC 13.7 H RBC 4.02 L Hgb 12.5 L Hct 37.2 L MCV 92.5 MCH 31.1 MCHC 33.6 RDW 13.3 Plt Count 205 MPV 10.4 Immature Gran % (Auto) 0.6 H Neut % (Auto) 86.5 H Lymph % (Auto) 4.5 L [place] % (Auto) 7.6 Eos % (Auto) 0.7 Baso % (Auto) 0.1 L Lymph # (Auto) 0.62 L [place] # (Auto) 1.0 H Eos # (Auto) 0.1 Baso # (Auto) 0.0 Abs Immat Gran (auto) 0.08 H Absolute Neuts (auto) 11.8 H Absolute Nucleated RBC 0.000 Nucleated RBC % 0.0 Sodium 132 L Potassium 3.7 Chloride 106 Carbon Dioxide 19 L Anion Gap 7 BUN 13 Creatinine 0.89 Estim Creat Clear Calc 106 Estimated GFR > 60 Glucose 101 Calcium 8.2 L Magnesium 1.9 Total Bilirubin 2.4 H AST 51 ALT 42 Alkaline Phosphatase 99 Total Protein 6.4 Albumin 3.2 L
[2024-11-29 20:11] VITALS: PULSE 74; RESP 20; O2SAT 90
[2024-11-29 20:39] VITALS: BP 130/61; PULSE 79; RESP 18; TEMP 37.1; O2SAT 97
[2024-11-30] VITALS (7 sets, daily range): BP systolic 109–141; BP diastolic 49–72; PULSE 62–74; RESP 16–20; TEMP 36.2–36.4; O2SAT 97–99
[2024-11-30] MEDS: HYDROcodone/acetaminophen (*CRX) 5-325 MG TABLET 1 TAB PO ×3 (00:22→20:59)
[2024-11-30] MEDS: SODIUM CHLORIDE 0.9% IV 1,000 ML 125 ML IV CONT ×2 (02:44→08:41)
[2024-11-30] MEDS: LEVOTHYROXINE SODIUM 125 MCG TABLET PO (06:04)
[2024-11-30] MEDS: UMECLIDINIUM/VILANTEROL 62.5-25 MCG ELLIPTA 1 PUFF INHALATION (08:05)
[2024-11-30] MEDS: APIXABAN 5 MG TABLET PO ×2 (08:40→20:59)
[2024-11-30] MEDS: FAMOTIDINE 20 MG/2 ML VIAL IV PUSH ×2 (08:40→20:59)
--- NOTE | 2024-11-30 16:08 | PM.IMPN ---
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 The patient presents here from home via EMS on 11/25 for further evaluation of abdominal pain. He reports onset of severe abdominal pain starting around 11 a.m. He described the abdominal pain as -> sharp, epigastric, nonradiating, constant but severity varies, no aggravating factors, and pressure/sitting up can somewhat alleviate it. Pain is accompanied by nausea and vomiting. He denies fever, chills, or body aches. The abdominal pain had prompted him to call EMS. Upon their arrival the patient's systolic blood pressure was in the 80s. However after they transferred him to the ambulance his blood pressure had dropped to 52/25. Given his presenting symptoms and severe hypotension, EMS became concerned for a AAA rupture which prompted them to give him 1G of TXA and 1 mg of Epinephrine. He received 2L of fluids and arrived to the emergency department with a blood pressure of 112/52. He has had no additional hypotensive episode since arrival. He has a hx of pancreatitis, unknown etiology. Denies any recent alcohol use in the last 4 months. Initial VS at presentation: 97.4? F, HR 65, R 12, 112/52, and 96% on RA. ED workup showed: No leukocytosis, hemoglobin 13.6, INR 1.6, creatinine 1.8 and GFR 38 (1.1 and GFR 57 on 04/26/2023), glucose 140, total bilirubin 1.6, AST 65, ALT 54, lipase of 17,071, procalcitonin 0.1. UA showed a high specific gravity and trace ketones otherwise unremarkable. Viral PCR negative. CXR showed mild chronic pulmonary vascular congestion. CTA of the chest/abdomen/pelvis showed no acute abnormality. Acute pancreatitis: Pain continues to improve. Clear liquid diet. Advance as tolerated. Discontinue fluids. Continue pain regimen. Initially hypotensive EN route with EMS, now resolved. Leukocytosis improving from 16.6-13.7. Transaminitis: Present on admission, resolved. Hepatitis screen negative. Holding MATERNAL CHILD NURSE pravastatin Elevated bilirubin: Total bilirubin 2.4 on 11/29/2024. Hemoglobin is stable. On 11/28/2024 upper quadrant ultrasound unremarkable although evaluation is limited by the patient's body habitus. MRCP pending. Chronic hypertension: Hypotensive on arrival, resolved. Continue to hold MATERNAL CHILD NURSE hydrochlorothiazide and olmesartan. Continue monitoring. Hypothyroidism: Resume MATERNAL CHILD NURSE levothyroxine Patient wishes to be full code. Clear liquid diet. Advance as tolerated. Famotidine 20 mg IV b.i.d, consider discontinuation if patient is eating regularly Continue MATERNAL CHILD NURSE Eliquis Subjective Date/time seen: 11/30/24 16:08 Interval history: No major acute overnight events. Reports his abdominal pain is greatly improved. Denies fever. MRI cannot be performed, nursing team attempting to retrieve records for his IVC filter. Review of Systems Review of Systems: All systems reviewed & are unremarkable except as noted in HPI and below (Subjective) Exam Const: General: comfortable and no acute distress Other: A&O x3 HENMT: Mouth: Yes moist mucous membranes Eyes: Pupils: Equal, round and reactive pupils present Neck: Neck: supple Resp: Effort & Inspection: normal respiratory effort Auscultation: clear to auscultation bilaterally Cardio: Rate: regular rate Rhythm: regular rhythm GI: Other: Nontender. Soft Neuro: Motor exam (neuro): 5/5 motor strength present throughout Extrem: General: no edema Objective Data Vital Signs Vital Signs: Vital Signs - 24 hr 11/29/24 20:00 11/29/24 20:11 11/29/24 20:39 Temperature 98.7 F Pulse Rate 74 79 Respiratory Rate 20 18 Blood Pressure 130/61 Pulse Oximetry 90 97 Oxygen Delivery Room Air Room Air Fraction of Inspired Oxygen 21 11/30/24 05:22 11/30/24 08:07 11/30/24 08:08 Temperature 97.6 F Pulse Rate 74 73 Respiratory Rate 20 17 Blood Pressure 141/72 H Pulse Oximetry 98 97 Oxygen Delivery Room Air Fraction of Inspired Oxygen 21 Intake/Output Intake/Output: Intake & Output 11/27/24 11/28/24 11/29/24 11/30/24 23:59 23:59 23:59 23:59 Intake Total 3928.8 4310 3780 993.8 Output Total 800 1900 100 0 Balance 3128.8 2410 3680 993.8 Meds/Results Medications: Active Medications Generic Name Dose Route Start Last Admin Trade Name Freq PRN Reason Stop Dose Admin Acetaminophen 650 mg 11/25/24 15:44 Acetaminophen 325 Mg Tablet PO Q4H PRN Mild Pain (1-3) or Fever Hydrocodone Bitart/Acetaminophen 1 tab 11/29/24 23:14 11/30/24 08:40 Hydrocodone/Acetaminophen (*Crx) 5-325 Mg Tablet PO 1 tab Q4H PRN Administration Pain Rated 4-6 Apixaban 5 mg 11/25/24 21:00 11/30/24 08:40 Apixaban 5 Mg Tablet PO 5 mg Q12HR OWEN Administration Famotidine 20 mg 11/25/24 21:00 11/30/24 08:40 Famotidine 20 Mg/2 Ml Vial IV PUSH 20 mg Q12HR OWEN Administration Hydromorphone HCl 0.5 mg 11/29/24 14:55 Hydromorphone Hcl Inj (*Crx) 1 Mg/Ml Syr IV PUSH Q4H PRN Pain Rated 7-10 Sodium Chloride 1,000 mls @ 125 mls/hr 11/25/24 15:45 11/30/24 08:41 Normal Saline Iv IV CONT 125 mls/hr .Q8H OWEN Administration Levothyroxine Sodium 125 mcg 11/26/24 06:30 11/30/24 06:04 Levothyroxine Sodium 125 Mcg Tablet PO 125 mcg DAILY@0630 OWEN Administration Ondansetron HCl 4 mg 11/25/24 16:38 11/27/24 01:45 Ondansetron Inj 4 Mg/2 Ml Vial IV PUSH 4 mg Q6H PRN Administration Nausea And Vomiting Umeclidinium/Vilanterol 1 puff 11/26/24 09:00 11/30/24 08:05 Umeclidinium/Vilanterol 62.5-25 Mcg Ellipta INHALATION 1 puff DAILY OWEN Administration Radiology Results: ITS Impressions Chest X-Ray 11/25/24 13:38 Impression: 1: Mild chronic pulmonary vascular congestion. Chest/Abdomen/Pelvis CTA 11/25/24 13:50 IMPRESSION: 1. No acute abnormality of the chest, abdomen and pelvis. Abdomen Ultrasound 11/28/24 07:58 IMPRESSION: 1. Unremarkable right upper quadrant ultrasound although evaluation is limited by patient body habitus Labs Labs: Laboratory Results - last 24 hr 11/29/24 05:36 WBC 13.7 H RBC 4.02 L Hgb 12.5 L Hct 37.2 L MCV 92.5 MCH 31.1 MCHC 33.6 RDW 13.3 Plt Count 205 MPV 10.4 Immature Gran % (Auto) 0.6 H Neut % (Auto) 86.5 H Lymph % (Auto) 4.5 L [place] % (Auto) 7.6 Eos % (Auto) 0.7 Baso % (Auto) 0.1 L Lymph # (Auto) 0.62 L [place] # (Auto) 1.0 H Eos # (Auto) 0.1 Baso # (Auto) 0.0 Abs Immat Gran (auto) 0.08 H Absolute Neuts (auto) 11.8 H Absolute Nucleated RBC 0.000 Nucleated RBC % 0.0 Sodium 132 L Potassium 3.7 Chloride 106 Carbon Dioxide 19 L Anion Gap 7 BUN 13 Creatinine 0.89 Estim Creat Clear Calc 106 Estimated GFR > 60 Glucose 101 Calcium 8.2 L Magnesium 1.9 Total Bilirubin 2.4 H AST 51 ALT 42 Alkaline Phosphatase 99 Total Protein 6.4 Albumin 3.2 L
[2024-12-01 05:23] VITALS: BP 134/51; PULSE 60; RESP 17; TEMP 36.2; O2SAT 97
[2024-12-01] MEDS: HYDROcodone/acetaminophen (*CRX) 5-325 MG TABLET 1 TAB PO ×3 (05:28→22:36)
[2024-12-01] MEDS: LEVOTHYROXINE SODIUM 125 MCG TABLET PO (05:29)
[2024-12-01 06:22] LABS: Hematocrit 35.0 % (42.0-52.0); Hemoglobin 11.8 g/dL (14.0-18.0); Immature Granulocyte Percent A 1.5 % (0-0.5); Lymphocytes Absolute Auto 0.80 K/mm3 (0.9-3.2); Mean Corpuscular HGB Conc 33.7 g/dl (32-36); Mean Corpuscular Hemoglobin 31.3 pg (26-34); Mean Corpuscular Volume 92.8 fl (80-100); Nucleated Red Blood Cells Absolute Auto 0.000 K/mm3 (0.0-0.012); Nucleated Red Blood Cells Perc 0.0 % (0.0-0.2); Platelet Count Result 228 k/mm3 (150-375); Red Blood Count 3.77 M/mm3 (4.6-6.20); White Blood Count 10.5 K/mm3 (4.5-10.0)
[2024-12-01 06:53] LABS: Alanine Aminotransferase 64 U/L (6-50); Albumin Level 2.9 g/dL (3.5-5.1); Alkaline Phosphatase 138 U/L (38-126); Anion Gap 6 mmol/L (4-12); Aspartate Amino Transferase 66 U/L (17-59); Bilirubin,Total 2.0 mg/dL (0.2-1.3); Blood Urea Nitrogen 11 mg/dL (9-20); Calcium 8.3 mg/dL (8.4-10.2); Carbon Dioxide 21 mmol/L (22-30); Chloride 105 mmol/L (98-107); Estimated CRCL calculation 112 ml/min; Estimated Glomerular Filt Rate > 60; Glucose 93 mg/dL (65-110); Magnesium 2.1 mg/dL (1.6-2.3); Potassium 3.5 mmol/L (3.4-5.0); Sodium 132 mmol/L (137-145); Total Protein 6.2 g/dL (6.3-8.2)
[2024-12-01] MEDS: UMECLIDINIUM/VILANTEROL 62.5-25 MCG ELLIPTA 1 PUFF INHALATION (07:39)
[2024-12-01 07:40] VITALS: PULSE 76; RESP 18
[2024-12-01 07:43] VITALS: PULSE 76; RESP 18; O2SAT 96
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
--- NOTE | 2024-12-01 09:02 | PM.IMPN ---
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 The patient presents here from home via EMS on 11/25 for further evaluation of abdominal pain. He reports onset of severe abdominal pain starting around 11 a.m. He described the abdominal pain as -> sharp, epigastric, nonradiating, constant but severity varies, no aggravating factors, and pressure/sitting up can somewhat alleviate it. Pain is accompanied by nausea and vomiting. He denies fever, chills, or body aches. The abdominal pain had prompted him to call EMS. Upon their arrival the patient's systolic blood pressure was in the 80s. However after they transferred him to the ambulance his blood pressure had dropped to 52/25. Given his presenting symptoms and severe hypotension, EMS became concerned for a AAA rupture which prompted them to give him 1G of TXA and 1 mg of Epinephrine. He received 2L of fluids and arrived to the emergency department with a blood pressure of 112/52. He has had no additional hypotensive episode since arrival. He has a hx of pancreatitis, unknown etiology. Denies any recent alcohol use in the last 4 months. Initial VS at presentation: 97.4? F, HR 65, R 12, 112/52, and 96% on RA. ED workup showed: No leukocytosis, hemoglobin 13.6, INR 1.6, creatinine 1.8 and GFR 38 (1.1 and GFR 57 on 04/26/2023), glucose 140, total bilirubin 1.6, AST 65, ALT 54, lipase of 17,071, procalcitonin 0.1. UA showed a high specific gravity and trace ketones otherwise unremarkable. Viral PCR negative. CXR showed mild chronic pulmonary vascular congestion. CTA of the chest/abdomen/pelvis showed no acute abnormality. Acute pancreatitis/and normal gallbladder findings, common bile duct dilation to 7 mm: Initially improving. On 12/01/2024 patient is having severe abdominal pain after trying a clear liquid diet. Concurrently, his T bilirubin elevated on 11/29/2024 and on 12/01/2024 developed transaminitis as well. MRCP was obtained on 11/30/2024 revealing acute interstitial pancreatitis with multiple small non loculated acute peripancreatic fluid collections extending to the fat anterior to the head of the pancreas, normal ground-glass configuration of the gallbladder with wall thickening at the central aspect of the gallbladder which appears narrowed. Mild dilation of the common bile duct to 7 mm with tapering, no evidence of obstructing mass or stone. Patient made NPO, general surgery consultation pending. Famotidine 20 mg IV b.i.d.. Eliquis placed on hold. Check daily INR. SCDs. He has scant crackles at the dependent portion of the lungs, unclear if this is due to his morbid obesity atelectasis or fluid buildup., GI consultation pending. Will start fluids at a slow rate of 50 cc/hour normal saline. Continue Dilaudid p.r.n., Zofran p.r.n.. Start Zosyn. Hepatitis screen negative. Holding [employer] pravastatin. Leukocytosis evident on admission has now resolved. Continue to monitor. Chronic hypertension: Hypotensive on arrival, resolved. Continue to hold [employer] hydrochlorothiazide and olmesartan. Continue monitoring. Hypothyroidism: Resume [employer] levothyroxine Patient wishes to be full code. NPO. Sodium chloride at 50 cc/hour. Famotidine 20 mg IV b.i.d. SCDs. Eliquis placed on hold on 12/01/2024. Subjective Date/time seen: 12/01/24 09:02 Interval history: We were able to complete the MRCP. Today, the patient try to clear liquid diet and shortly after had severe abdominal pain where he was hunched over in unable to move. He reports the pain is mildly better. He had a bowel movement yesterday. Denies fever. Denies cough shortness of breath or chest pain. He is amenable to General surgery consultation. Review of Systems Review of Systems: All systems reviewed & are unremarkable except as noted in HPI and below (Subjective) Exam Const: General: comfortable and no acute distress Other: A&O x3, morbidly obese. HENMT: Mouth: Yes moist mucous membranes Eyes: Pupils: Equal, round and reactive pupils present Neck: Neck: supple Resp: Effort & Inspection: normal respiratory effort Other: Scant crackles at the bilateral bases Cardio: Rate: regular rate Rhythm: regular rhythm GI: GI Palp: Yes Soft to palpation Other: Distended due to body habitus. No tenderness to palpation. Hypoactive bowel sounds Neuro: Motor exam (neuro): 5/5 motor strength present throughout Extrem: General: no edema Objective Data Vital Signs Vital Signs: Vital Signs - 24 hr 11/30/24 14:00 11/30/24 20:00 11/30/24 20:16 Temperature 97.2 F L 97.2 F L Pulse Rate 65 62 62 Respiratory Rate 16 17 17 Blood Pressure 109/49 L 130/55 L Pulse Oximetry 99 98 98 Oxygen Delivery Room Air Fraction of Inspired Oxygen 11/30/24 23:28 12/01/24 05:23 12/01/24 07:40 Temperature 97.1 F L Pulse Rate 60 76 Respiratory Rate 17 18 Blood Pressure 134/51 L Pulse Oximetry 97 97 Oxygen Delivery Room Air Fraction of Inspired Oxygen 12/01/24 07:43 Temperature Pulse Rate 76 Respiratory Rate 18 Blood Pressure Pulse Oximetry 96 Oxygen Delivery Room Air Fraction of Inspired Oxygen Intake/Output Intake/Output: Intake & Output 11/28/24 11/29/24 11/30/24 12/01/24 23:59 23:59 23:59 23:59 Intake Total 4310 3780 993.8 240 Output Total 1900 100 0 800 Balance 2410 3680 993.8 -560 Meds/Results Medications: Active Medications Generic Name Dose Route Start Last Admin Trade Name Freq PRN Reason Stop Dose Admin Acetaminophen 650 mg 11/25/24 15:44 Acetaminophen 325 Mg Tablet PO Q4H PRN Mild Pain (1-3) or Fever Hydrocodone Bitart/Acetaminophen 1 tab 11/29/24 23:14 12/01/24 05:28 Hydrocodone/Acetaminophen (*Crx) 5-325 Mg Tablet PO 1 tab Q4H PRN Administration Pain Rated 4-6 Apixaban 5 mg 11/25/24 21:00 11/30/24 20:59 Apixaban 5 Mg Tablet PO 5 mg On Hold: 12/01/24 09:00 Q12HR OWEN Administration Famotidine 20 mg 11/25/24 21:00 11/30/24 20:59 Famotidine 20 Mg/2 Ml Vial IV PUSH 20 mg Q12HR OWEN Administration Hydromorphone HCl 0.5 mg 11/29/24 14:55 Hydromorphone Hcl Inj (*Crx) 1 Mg/Ml Syr IV PUSH Q4H PRN Pain Rated 7-10 Piperacillin Sod/Tazobactam 50 mls @ 100 mls/hr 12/01/24 09:00 Sod 3.375 gm/ Sodium Chloride IVPB Q6H OWEN Sodium Chloride 1,000 mls @ 50 mls/hr 12/01/24 09:00 Normal Saline Iv IV CONT .Q20H OWEN Levothyroxine Sodium 125 mcg 11/26/24 06:30 12/01/24 05:29 Levothyroxine Sodium 125 Mcg Tablet PO 125 mcg DAILY@0630 OWEN Administration Ondansetron HCl 4 mg 11/25/24 16:38 11/27/24 01:45 Ondansetron Inj 4 Mg/2 Ml Vial IV PUSH 4 mg Q6H PRN Administration Nausea And Vomiting Umeclidinium/Vilanterol 1 puff 11/26/24 09:00 12/01/24 07:39 Umeclidinium/Vilanterol 62.5-25 Mcg Ellipta INHALATION 1 puff DAILY OWEN Administration Radiology Results: ITS Impressions Chest X-Ray 11/25/24 13:38 Impression: 1: Mild chronic pulmonary vascular congestion. Chest/Abdomen/Pelvis CTA 11/25/24 13:50 IMPRESSION: 1. No acute abnormality of the chest, abdomen and pelvis. Abdomen Ultrasound 11/28/24 07:58 IMPRESSION: 1. Unremarkable right upper quadrant ultrasound although evaluation is limited by patient body habitus MRCP 11/30/24 16:08 IMPRESSION: 1. Acute interstitial pancreatitis with multiple small nonloculated acute peripancreatic fluid collections extending to the fat anterior to the head of the pancreas. 2. Abnormal groundglass configuration of the gallbladder with wall thickening at the central aspect of the gallbladder which appears narrowed suggests either scarring related chronic cholecystitis or potentially gallbladder carcinoma. Recommend surgical consultation. 2. Mild dilation the common bile duct to 7 mm but which tapers distally with no evident obstructing stone or mass. Labs Labs: Laboratory Results - last 24 hr 12/01/24 05:23 WBC 10.5 H RBC 3.77 L Hgb 11.8 L Hct 35.0 L MCV 92.8 MCH 31.3 MCHC 33.7 RDW 14.0 Plt Count 228 MPV 10.8 H Immature Gran % (Auto) 1.5 H Neut % (Auto) 76.3 H Lymph % (Auto) 7.6 L Beaver % (Auto) 12.9 H Eos % (Auto) 1.3 Baso % (Auto) 0.4 Lymph # (Auto) 0.80 L Beaver # (Auto) 1.4 H Eos # (Auto) 0.1 Baso # (Auto) 0.0 Abs Immat Gran (auto) 0.16 H Absolute Neuts (auto) 8.0 H Absolute Nucleated RBC 0.000 Nucleated RBC % 0.0 Sodium 132 L Potassium 3.5 Chloride 105 Carbon Dioxide 21 L Anion Gap 6 BUN 11 Creatinine 0.83 Estim Creat Clear Calc 112 Estimated GFR > 60 Glucose 93 Calcium 8.3 L Magnesium 2.1 Total Bilirubin 2.0 H AST 66 H ALT 64 H Alkaline Phosphatase 138 H Total Protein 6.2 L Albumin 2.9 L
[2024-12-01] MEDS: HYDROmorphone HCL INJ (*CRX) 1 MG/ML SYR 0.5 MG IV PUSH (09:07)
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
[2024-12-01] MEDS: SODIUM CHLORIDE 0.9% IV 1,000 ML 50 ML IV CONT (09:51)
[2024-12-01] MEDS: FAMOTIDINE 20 MG/2 ML VIAL IV PUSH ×2 (09:52→20:28)
[2024-12-01] MEDS: PIPERACILLIN/TAZOBACTAM SOD 3.375 GM in SODIUM CHLORIDE 0.9% IV 50 ML 100 ML IVPB (09:55)
[2024-12-01 10:21] LABS: Lipase 48 U/L (23-300)
[2024-12-01 14:00] VITALS: BP 139/63; PULSE 70; RESP 16; TEMP 36.2; O2SAT 99
[2024-12-01 20:30] VITALS: BP 127/51; PULSE 69; RESP 18; TEMP 36.6; O2SAT 97
[2024-12-02] MEDS: HYDROmorphone HCL INJ (*CRX) 1 MG/ML SYR 0.5 MG IV PUSH ×2 (02:03→08:40)
[2024-12-02 05:20] VITALS: BP 142/60; PULSE 64; RESP 20; TEMP 36.1; O2SAT 97
[2024-12-02] MEDS: LEVOTHYROXINE SODIUM 125 MCG TABLET PO (05:42)
[2024-12-02 07:00] LABS: Hematocrit 36.0 % (42.0-52.0); Hemoglobin 12.1 g/dL (14.0-18.0); Immature Granulocyte Percent A 2.7 % (0-0.5); Lymphocytes Absolute Auto 0.81 K/mm3 (0.9-3.2); Mean Corpuscular HGB Conc 33.6 g/dl (32-36); Mean Corpuscular Hemoglobin 31.0 pg (26-34); Mean Corpuscular Volume 92.3 fl (80-100); Nucleated Red Blood Cells Absolute Auto 0.000 K/mm3 (0.0-0.012); Nucleated Red Blood Cells Perc 0.0 % (0.0-0.2); Platelet Count Result 244 k/mm3 (150-375); Red Blood Count 3.90 M/mm3 (4.6-6.20); White Blood Count 8.4 K/mm3 (4.5-10.0)
[2024-12-02 07:09] LABS: INR 1.5; Prothrombin Time 17.7 Seconds (11.1-14.7)
--- NOTE | 2024-12-02 07:13 | WPDGIPROGNO ---
Progress Note: A&P Assessment and Plan (1) Acute pancreatitis: Qualifiers: Acute pancreatitis complication: no infection or necrosis Pancreatitis type: unspecified pancreatitis type Qualified Code(s): K85.90 - Acute pancreatitis without necrosis or infection, unspecified Code(s): K85.90 - Acute pancreatitis without necrosis or infection, unspecified Status: Acute Assessment and Plan: The patient has been diagnosed with acute pancreatitis. The etiology is presumed to be biliary in nature, given a recent, mild elevation in liver enzymes that were previously within normal limits. However, current imaging has not revealed any definite stones or sludge. The pain the patient described was likely due to constipation, as it was relieved after a bowel movement. Upon discharge, the patient will be referred to [facility] for an endoscopic ultrasound to further investigate the cause. The diet can be advanced to soft foods, and if tolerated, the patient can be discharged home with instructions to maintain a light diet and abstain from alcohol. Subjective Date/time seen: 12/02/24 07:13 Interval history: The patient had an episode of abdominal pain last night, located to the mid abdomen and lower abdomen, relieved by passage of gas and 1 regular volume stool. Objective Data Vital Signs Vital Signs: Vital Signs - 24 hr 12/01/24 07:40 12/01/24 07:43 12/01/24 14:00 Temperature 97.1 F L Pulse Rate 76 76 70 Respiratory Rate 18 18 16 Blood Pressure 139/63 Pulse Oximetry 96 99 Oxygen Delivery Room Air 12/01/24 20:30 12/02/24 05:20 Temperature 98 F 97 F L Pulse Rate 69 64 Respiratory Rate 18 20 Blood Pressure 127/51 L 142/60 H Pulse Oximetry 97 97 Oxygen Delivery Intake/Output Intake/Output: Intake & Output 11/29/24 11/30/24 12/01/24 12/02/24 23:59 23:59 23:59 23:59 Intake Total 3780 993.8 290 150 Output Total 100 0 800 425 Balance 3680 993.8 -510 -275 Meds/Results Medications: Active Medications Generic Name Dose Route Start Last Admin Trade Name Freq PRN Reason Stop Dose Admin Acetaminophen 650 mg 11/25/24 15:44 Acetaminophen 325 Mg Tablet PO Q4H PRN Mild Pain (1-3) or Fever Hydrocodone Bitart/Acetaminophen 1 tab 11/29/24 23:14 12/01/24 22:36 Hydrocodone/Acetaminophen (*Crx) 5-325 Mg Tablet PO 1 tab Q4H PRN Administration Pain Rated 4-6 Apixaban 5 mg 11/25/24 21:00 11/30/24 20:59 Apixaban 5 Mg Tablet PO 5 mg On Hold: 12/01/24 09:00 Q12HR OWEN Administration Famotidine 20 mg 11/25/24 21:00 12/01/24 20:28 Famotidine 20 Mg/2 Ml Vial IV PUSH 20 mg Q12HR OWEN Administration Hydromorphone HCl 0.5 mg 11/29/24 14:55 12/02/24 02:03 Hydromorphone Hcl Inj (*Crx) 1 Mg/Ml Syr IV PUSH 0.5 mg Q4H PRN Administration Pain Rated 7-10 Sodium Chloride 1,000 mls @ 50 mls/hr 12/01/24 09:00 12/01/24 09:51 Normal Saline Iv IV CONT 50 mls/hr .Q20H OWEN Administration Levothyroxine Sodium 125 mcg 11/26/24 06:30 12/02/24 05:42 Levothyroxine Sodium 125 Mcg Tablet PO 125 mcg DAILY@0630 OWEN Administration Ondansetron HCl 4 mg 11/25/24 16:38 11/27/24 01:45 Ondansetron Inj 4 Mg/2 Ml Vial IV PUSH 4 mg Q6H PRN Administration Nausea And Vomiting Umeclidinium/Vilanterol 1 puff 11/26/24 09:00 12/01/24 07:39 Umeclidinium/Vilanterol 62.5-25 Mcg Ellipta INHALATION 1 puff DAILY OWEN Administration Radiology Results: ITS Impressions Chest X-Ray 11/25/24 13:38 Impression: 1: Mild chronic pulmonary vascular congestion. Chest/Abdomen/Pelvis CTA 11/25/24 13:50 IMPRESSION: 1. No acute abnormality of the chest, abdomen and pelvis. Abdomen Ultrasound 11/28/24 07:58 IMPRESSION: 1. Unremarkable right upper quadrant ultrasound although evaluation is limited by patient body habitus MRCP 11/30/24 16:08 IMPRESSION: 1. Acute interstitial pancreatitis with multiple small nonloculated acute peripancreatic fluid collections extending to the fat anterior to the head of the pancreas. 2. Abnormal groundglass configuration of the gallbladder with wall thickening at the central aspect of the gallbladder which appears narrowed suggests either scarring related chronic cholecystitis or potentially gallbladder carcinoma. Recommend surgical consultation. 2. Mild dilation the common bile duct to 7 mm but which tapers distally with no evident obstructing stone or mass. Venous Doppler Study 12/01/24 14:13 IMPRESSION: 1. Patent right upper extremity veins. No evidence of deep venous thrombosis. Labs Labs: Laboratory Results - last 24 hr 12/01/24 12/02/24 12/02/24 05:23 00:41 06:25 PT 17.7 H INR 1.5 POC Capillary Glucose 106 H Lipase 48
[2024-12-02 07:25] LABS: Alanine Aminotransferase 76 U/L (6-50); Albumin Level 2.8 g/dL (3.5-5.1); Alkaline Phosphatase 178 U/L (38-126); Anion Gap 8 mmol/L (4-12); Aspartate Amino Transferase 72 U/L (17-59); Bilirubin,Total 1.4 mg/dL (0.2-1.3); Blood Urea Nitrogen 11 mg/dL (9-20); Calcium 8.2 mg/dL (8.4-10.2); Carbon Dioxide 21 mmol/L (22-30); Chloride 105 mmol/L (98-107); Estimated CRCL calculation 116 ml/min; Estimated Glomerular Filt Rate > 60; Glucose 97 mg/dL (65-110); Magnesium 2.0 mg/dL (1.6-2.3); Potassium 3.3 mmol/L (3.4-5.0); Sodium 134 mmol/L (137-145); Total Protein 6.3 g/dL (6.3-8.2)
[2024-12-02] MEDS: UMECLIDINIUM/VILANTEROL 62.5-25 MCG ELLIPTA 1 PUFF INHALATION (07:42)
[2024-12-02 07:43] VITALS: O2SAT 98
[2024-12-02] MEDS: FAMOTIDINE 20 MG/2 ML VIAL IV PUSH (08:41)
--- NOTE | 2024-12-02 09:18 | PCNWS ---
Weekly nutritional screen. Patient is tolerating current Soft diet with adequate intake, 50-75%. No weight loss reported. No nutritional needs at this time.
[2024-12-02] MEDS: APIXABAN 5 MG TABLET PO (10:28)
--- NOTE | 2024-12-02 12:36 | P.DS_ITS ---
DS: Admitting Diagnosis Discharge Date 12/02/2024 Admitting Diagnosis Abdominal pain DS: Discharge Diagnosis Discharge Diagnosis (1) Acute pancreatitis: Qualifiers: Acute pancreatitis complication: no infection or necrosis Pancreatitis type: unspecified pancreatitis type Qualified Code(s): K85.90 - Acute pancreatitis without necrosis or infection, unspecified Code(s): K85.90 - Acute pancreatitis without necrosis or infection, unspecified Status: Acute (2) Elevated LFTs: Code(s): R79.89 - Other specified abnormal findings of blood chemistry Status: Acute (3) Abnormal findings on diagnostic imaging of gallbladder: Code(s): R93.2 - Abnormal findings on diagnostic imaging of liver and biliary tract Status: Acute (4) Hepatic steatosis: Code(s): K76.0 - Fatty (change of) liver, not elsewhere classified Status: Acute DS: Summary Hospital Course Hospital Course: 69 y/o M with PMH of pancreatitis (unknown etiology), HLD, HTN, arthritis, hypothyroidism, IVC filter, 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 He had an elevated lipase at 17,000. Treated for acute pancreatitis with bowel rest, fluids, pain control. This resolved. Then, had some abdominal pain due to constipation which resolved with after a one time tap water enema. Initially, abdominal ultrasound on 11/28/2024 unremarkable for gallbladder pathology however this test was limited by the patient's body habitus. Afterwards, T bilirubin elevated to 2.0. AST, ALT elevated, alkaline phosphatase elevated at 178. Viral hepatitis screen negative. MRCP performed demonstrated: 1. Acute interstitial pancreatitis with multiple small nonloculated acute peripancreatic fluid collections extending to the fat anterior to the head of the pancreas. 2. Abnormal groundglass configuration of the gallbladder with wall thickening at the central aspect of the gallbladder which appears narrowed suggests either scarring related chronic cholecystitis or potentially gallbladder carcinoma. Recommend surgical consultation. 2. Mild dilation the common bile duct to 7 mm but which tapers distally with no evident obstructing stone or mass. Seen by gastroenterology. Advised referral to patient to [facility] for endoscopic ultrasound to investigate further. His diet was advanced to regular. No further abdominal pain. Discharged home in stable condition on 12/02/2024. 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 is concerned about his blood pressure being a bit low during this admission. They will be checking his blood pressure at home and reporting to PCP. Advised to hold pravastatin due to transaminitis at least while the bladder liver are being investigated further. The patient was full code during the admission. Time Spent with Patient Time attestation: Total time spent providing and/or coordinating discharge services: Exam Const: General: comfortable and no acute distress HENMT: Mouth: Yes moist mucous membranes Eyes: Pupils: Equal, round and reactive pupils present Neck: Neck: supple Resp: Effort & Inspection: normal respiratory effort Auscultation: clear to auscultation bilaterally Cardio: Rate: regular rate Rhythm: regular rhythm GI: Inspection: non-distended GI Palp: Yes Soft to palpation Neuro: Motor exam (neuro): 5/5 motor strength present throughout Extrem: General: no edema DS: Data Data Completed and Pending Labs on day of discharge: Labs from last 24 hours 12/02/24 12/02/24 12/02/24 11:37 06:25 00:41 WBC 8.4 RBC 3.90 L Hgb 12.1 L Hct 36.0 L MCV 92.3 MCH 31.0 MCHC 33.6 RDW 14.3 Plt Count 244 MPV 10.3 Immature Gran % (Auto) 2.7 H Neut % (Auto) 75.2 H Lymph % (Auto) 9.6 L [place] % (Auto) 10.8 H Eos % (Auto) 1.2 Baso % (Auto) 0.5 Lymph # (Auto) 0.81 L [place] # (Auto) 0.9 H Eos # (Auto) 0.1 Baso # (Auto) 0.0 Abs Immat Gran (auto) 0.23 H Absolute Neuts (auto) 6.3 Absolute Nucleated RBC 0.000 Nucleated RBC % 0.0 PT 17.7 H INR 1.5 Sodium 134 L Potassium 3.3 L Chloride 105 Carbon Dioxide 21 L Anion Gap 8 BUN 11 Creatinine 0.80 Estim Creat Clear Calc 116 Estimated GFR > 60 Glucose 97 POC Capillary Glucose 128 H 106 H Calcium 8.2 L Magnesium 2.0 Total Bilirubin 1.4 H Direct Bilirubin 0.0 AST 72 H ALT 76 H Alkaline Phosphatase 178 H Total Protein 6.3 Albumin 2.8 L Discharge Plan Discharge Attending physician on discharge: Marlen Guillen Discharging Clinician: Marlen Guillen Patient Disposition: Home Activity: july shower Diet: low cholesterol and low fat Patient Instructions: Antibiotic Form Patient Language: Urdu Stand Alone Forms: General Discharge Information Follow-up/Referrals: Barry Stevens APRN [Primary Care Provider, Internal Medicine] Discharge Medications: New acetaminophen 500 mg capsule 500 mg PO Q6H PRN (Reason: fever or pain) Qty: 30 0RF Continued Eliquis 5 mg tablet 5 mg PO BID levothyroxine 125 mcg tablet 125 mcg PO DAILY Qty: 90 1RF Stiolto Respimat 2.5-2.5 mcg/actuation mist 2 puff inhalation DAILY olmesartan 20 mg tablet 20 mg PO DAILY Qty: 90 3RF Held pravastatin 40 mg tablet See Rx Instructions .ROUTE .COMPLEX Qty: 90 1RF Hold Instructions: Hold while you are undergoing investigation of your liver and gallbladder system, review use of this with your primary care/sales estimator Dose Instruction: TAKE ONE-HALF TABLET BY MOUTH DAILY Rx Instructions: TAKE ONE-HALF TABLET BY MOUTH DAILY Discontinued hydrochlorothiazide 12.5 mg tablet 12.5 mg PO DAILY Qty: 90 1RF Date of admission: 11/25/24 18:14 Primary Care Provider: Barry Stevens Admitting Provider: Parker Schofield Attending physician on admission: Parker Schofield Condition: Stable Hospitalist MIPS Heart Failure (Exclusion) Patient has history of Heart Transplant or Left Ventricular Assistive Device?: No IF YES, STOP HERE Heart Failure (Qualifier) Patient has current or prior documentation of LVEF less than or equal to 40%, or mod/servere depressed LVSF?: No IF NO, STOP HERE
[2024-12-02] MEDS: POTASSIUM CHLORIDE 20 MEQ ER TABLET PO (12:45)
== END 2024-12-02 13:44 | disposition home or self-care (01) | DRG 439 ==
LOC: ANHED 15:20 → ANH3MEDSUR 11-27 15:37 → ANHIMU 11-27 15:37
PROVIDERS: Internal Medicine; Nurse Practitioner Family; Student in an Organized Health Care Education/Training Program; Admitting Provider Internal Medicine; Emergency Provider Emergency Medicine; PCP Nurse Practitioner; Visit Provider General Practice
DX: K85.80 Other acute pancreatitis without necrosis or infection (principal); Z68.41 Body mass index [BMI] 40.0-44.9, adult; K86.1 Other chronic pancreatitis; K76.0 Fatty (change of) liver, not elsewhere classified; E03.9 Hypothyroidism, unspecified; E78.2 Mixed hyperlipidemia; E66.01 Morbid (severe) obesity due to excess calories; G89.29 Other chronic pain; I10 Essential (primary) hypertension; I95.9 Hypotension, unspecified; M13.0 Polyarthritis, unspecified; Z95.828 Presence of other vascular implants and grafts; Z86.711 Personal history of pulmonary embolism; Z87.891 Personal history of nicotine dependence; Z79.01 Long term (current) use of anticoagulants; Z20.822 Contact with and (suspected) exposure to COVID-19; Z86.718 Personal history of other venous thrombosis and embolism
CPT/HCPCS: 36415; 71045; 71275; 74174; 74183; 76376; 76705; 80053; 80061; 80074; 81003; 82248; 82948; 83605; 83690; 83735; 83880; 84145; 84484; 85025; 85610; 85730; 86850; 86900; 86901; 87637; 93005; 93971; 94640; 96361; 96374; 96375; 96376; 99285; A9270; A9577; G0378; J1171; J2405; J2470; J2543; J3010; J7030; Q9967